=== PATIENT | female | born 1945 | race Caucasian/White ===

== ENCOUNTER → 2016-05-11 | Outpatient (CLI) | payer OTHER ==
[~2016-05-11] MED LIST: BIOT1TAB5 PO; CALC500C3; CHOL100010 PO; CLON0.5T3 PO; COEN100C15 PO; FLUO20CA20 PO; LEVOTHYROXIN; LISI40TA PO; SIMV20TA2 PO
[2016-05-11 17:17] LABS: BLOOD UREA NITROGEN 17 mg/dl (7-18); BUN/CREATININE RATIO 13.8 (10-20); CALCIUM 9.3 mg/dl (8.5-10.1); CARBON DIOXIDE 28 mmol/L (21-32); CHLORIDE 106 mmol/L (98-107); GLUCOSE 108 mg/dl (70-99); POTASSIUM 3.8 mmol/L (3.5-5.1); SODIUM 142 mmol/L (136-145)
[2016-05-12 06:25] LABS: ESTIMATED AVERAGE GLUCOSE 126 mg/dl; HA1C FLAG Normal (Normal)
--- NOTE | 2016-05-15 09:31 | CODING QUERY MEDICAL NECESSITY ---
SUPPORTING DIAGNOSIS NEEDED A supporting diagnosis is required for the test/procedure performed on this patient in order for us to be reimbursed by the patient's insurance. Please provide a supporting diagnosis for the following test/procedure listed below next to the test name along with your signature. *If there is no additional diagnosis for this patient that would support the following test/procedure please document that below next to the test/procedure. Test(s)/Procedure(s) that require a supporting diagnosis: * GLYCATED HEMOGLOBIN DIAGNOSIS: * DOS: 05/11/16 Provider Signature: Date: Thank you Kenyetta Perez Health Information Management Once completed, please kindly fax back to [phone] For questions please call [phone]
== END | disposition home or self-care (01) ==
LOC: C.LABBC 13:57
PROVIDERS: ATTEND Internal Medicine Geriatric Medicine
DX: I10 Essential (primary) hypertension (principal); E03.9 Hypothyroidism, unspecified; E78.5 Hyperlipidemia, unspecified; F32.9 Major depressive disorder, single episode, unspecified; M85.80 Other specified disorders of bone density and structure, unspecified site; N18.9 Chronic kidney disease, unspecified; D12.6 Benign neoplasm of colon, unspecified

== ENCOUNTER 2016-07-12 20:23 | Emergency (ER) | payer OTHER ==
[~2016-07-12] VITALS: Ht 157.5 cm; Wt 91.8 kg
[2016-07-12 20:29] VITALS: TEMP 36.5; Ht 157.5 cm; Wt 91.8 kg
[2016-07-12] MEDS ORDERED: CEFAZOLIN SOD 1000MG/55 ML D5W IV STA (20:29)
[2016-07-12] MEDS ORDERED: ONDANSETRON INJ 2 MG/ML 2 ML VIAL IV STA ×2 (20:29→21:03)
[2016-07-12] MEDS ORDERED: DIPHTHERIA/TETANUS/PERTUSSIS 0.5 ML SYR/VIAL IM. ONE (20:30)
--- NOTE | 2016-07-12 20:50 | DIAGNOSTIC IMAGING REPORT ---
CHEST ONE VIEW PORTABLE CLINICAL HISTORY: Fall. COMPARISON STUDY: Chest CT June 13, 2012 and chest radiograph November 27, 2011. FINDINGS: Lung volumes are diminished. There is mild cardiomegaly. There is apparent pulmonary vascular congestion. No pneumothorax or pleural effusion is present. There is no lobar consolidation. IMPRESSION: 1. Mild cardiomegaly with suspected pulmonary vascular congestion. 2. No pneumothorax. Electronically signed by: Cesario Rizvi M.D. 07/12/2016 8:49 PM Dictated Date/Time: 07/12/2016 8:46 PM
[2016-07-12 20:51] VITALS: BP 155/100; PULSE 73; O2SAT 100
--- NOTE | 2016-07-12 20:53 | EMERGENCY ROOM VISIT NOTE ---
History Report prepared by Urbano: Yanely Cisneros Under the Supervision of: Dr. Richard Ramsey M.D. 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 The patient reports that she fell down about 25 feet over a van embankment. She notes neck pain and bilateral shoulder pain that is worsened with movement. She has numerous lacerations to her face and reports facial pain. The patient rates her pain as a 6/10 in severity. Her family drove her to the ED. The patient started vomiting en route to the ED. She states that she is developing a headache. She is not sure if her tetanus is up to date. The patient denies shortness of breath , hip pain, and chest pain. She denies taking any blood thinners. Source of History: patient, family Onset: PACS ADMINISTRATOR Position: other (global) Symptom Intensity: 6/10 Timing: other (episode) Modifying Factors (Worsening): movement Associated Symptoms: + headache, + nausea, + neck pain, + vomiting, No SOB, No chest pain Note: Pt has bilateral shoulder pain. She has numerous lacerations to her face and reports facial pain. Review of Systems See HPI for pertinent positives & negatives. A total of 10 systems reviewed and were otherwise negative. Past Medical & Surgical Medical Problems: (1) Hyperlipidemia, unspecified (2) Lumbago Surgical Problems: (1) History of bilateral knee replacement Family History Non-pertinent due to advanced age. Social History Smoking Status: Never Smoker Housing Status: lives with family Occupation Status: retired Current/Historical Medications Scheduled Biotin (Biotin), 1 TAB PO DAILY Cholecalciferol (Vitamin D), 1,000 INTER.UNIT PO DAILY Clonazepam (Klonopin), 0.5 MG PO HS PRN Coenzyme Q10 (Ubidecarenone) (Co Q10), 1 CAP PO DAILY Fluoxetine Hcl (Pmdd) (Fluoxetine), 1 CAP PO DAILY Lisinopril (Zestril), 40 MG PO DAILY Simvastatin (Zocor), 20 MG PO QPM [Levothyroxin], 75 MCG DAILY [Tums], DAILY Allergies Coded Allergies: NSAIDs (Verified Adverse Reaction, Severe, NO NSAIDS PER DR BEE ( [id number] ADM), 07/12/16) STATES SHE TAKES NSAIDS NEEDED Erythromycin (Verified Adverse Reaction, Mild, GI SENSITIVITY, 07/12/16) Hydrocodone (Verified Adverse Reaction, Mild, HEADACHE, NAUSEA, 07/12/16) 10/19/14 DENIES STATES HAS USED [facility] W/O PROB Physical Exam Vital Signs Date Time Temp Pulse Resp B/P Pulse Ox O2 Delivery O2 Flow Rate FiO2 07/12/16 20:51 73 16 155/100 100 Room Air 07/12/16 20:47 72 18 156/82 100 Room Air 07/12/16 20:35 74 07/12/16 20:29 36.5 75 18 159/83 100 Room Air Physical Exam GENERAL: Patient is well appearing and in moderate distress. HEAD: She has extensive face and head injury with nasal laceration and avulsion of most of nose. Large contusion and bruising around the left eye and laceration to the left eyebrow. Contusion and abrasion to the posterior scalp, non-bleeding EYES: Unable to see left pupil due to severe periorbital swelling/bruising. Right pupil reactive. No scleral icterus. Normal EOM. ENT: moist mucous membranes, nose is almost completely avulsed off. NECK: No stridor, trachea is midline. She is in a cervical collar. CHEST: TTP over left upper chest at site of bruise. Non-tender, equal chest rise with breath. Clavicles stable/non-tender. LUNGS: Clear to auscultation bilaterally, no wheeze, no rhonchi, breath sounds equal. No dyspnea. HEART: Regular rate and rhythm. No murmurs/gallops/rhonchi appreciated. ABDOMEN: Soft, nontender, bowel sounds positive, no peritonitis. No masses appreciated. BACK: Nontender with palpation, no step-offs. PELVIS: Stable. Non-tender EXTREMITIES: No cyanosis or edema, full range of motion of all the joints without pain or difficulty, bilateral arm and leg bruising and contusions. Distal pulses intact. SKIN: No rash, no jaundice, no diaphoresis. NEUROLOGIC: Oriented x 3, no acute motor or sensory deficits, no focal weakness. GCS 15. Medical Decision & Procedures ER Provider Diagnostic Interpretation: Radiology results and stated below per my review and radiologist interpretation: CHEST ONE VIEW PORTABLE CLINICAL HISTORY: Fall. COMPARISON STUDY: Chest CT June 13, 2012 and chest radiograph November 27, 2011. FINDINGS: Lung volumes are diminished. There is mild cardiomegaly. There is apparent pulmonary vascular congestion. No pneumothorax or pleural effusion is present. There is no lobar consolidation. IMPRESSION: 1. Mild cardiomegaly with suspected pulmonary vascular congestion. 2. No pneumothorax. Electronically signed by: Cesario Rizvi M.D. 07/12/2016 8:49 PM Dictated Date/Time: 07/12/2016 8:46 PM PELVIS 1 OR 2 VIEW ROUTINE CLINICAL HISTORY: Trauma. COMPARISON STUDY: PET/CT November 07, 2011. FINDINGS: The sacroiliac joints and symphysis pubis are intact. No acute fracture is identified within the pelvis or the hips. Apparent foreshortening of the right femoral neck is likely technical. IMPRESSION: Apparent foreshortening of the right femoral neck. This is likely positional/technical. However, if persistent right hip pain, dedicated right hip radiographs are recommended. Electronically signed by: Cesario Rizvi M.D. 07/12/2016 8:53 PM Dictated Date/Time: 07/12/2016 8:51 PM Laboratory Results 07/12/16 20:30 Red Blood Count 4.73, Mean Corpuscular Volume 83.5, Mean Corpuscular Hemoglobin 29.8, Mean Corpuscular Hemoglobin Concent 35.7, Mean Platelet Volume 10.2 07/12/16 20:30 Test 07/12/16 20:30 07/12/16 20:35 White Blood Count 15.72 K/uL (4.8-10.8) Red Blood Count 4.73 M/uL (4.2-5.4) Hemoglobin 14.1 g/dL (12.0-16.0) Hematocrit 39.5 % (37-47) Mean Corpuscular Volume 83.5 fL (80-100) Mean Corpuscular Hemoglobin 29.8 pg (25-34) Mean Corpuscular Hemoglobin Concent 35.7 g/dl (32-36) Platelet Count 267 K/uL (130-400) Mean Platelet Volume 10.2 fL (7.4-10.4) RDW Standard Deviation 41.8 fL (36.4-46.3) RDW Coefficient of Variation 13.5 % (11.5-14.5) Nucleated RBC Absolute Count (auto) 0.02 K/uL (0-0) Neutrophils % (Manual) 53.0 % Lymphocytes % (Manual) 17.4 % Variant Lymphocytes % (manual) 14.8 % Monocytes % (Manual) 9.6 % Eosinophils % (Manual) 2.6 % Myelocytes % 2.6 % Nucleated Red Blood Cells % 0.1 % Neutrophils # (Manual) 8.33 K/uL (1.4-6.5) Total Absolute Neutrophils 8.33 K/uL (1.4-6.5) Lymphocytes # (Manual) 2.74 K/uL (1.2-3.4) Absolute Variant Lymphocytes 2.33 K/uL Total Absolute Lymphocytes 5.06 K/uL (1.2-3.4) Monocytes # (Manual) 1.51 K/uL (0.11-0.59) Eosinophils # (Manual) 0.41 K/uL (0-0.5) Myelocytes # 0.41 K/uL (0-0) Smudge Cells PRESENT Est Creatinine Clear Calc Drug Dose 37.7 ml/min Estimated GFR () 43.1 Estimated GFR (Non- 37.2 BUN/Creatinine Ratio 14.3 (10-20) Calcium Level 9.2 mg/dl (8.5-10.1) Chemistry Specimen Hemolysis Bedside Hemoglobin 13.9 g/dl (12.0-16.0) Bedside Hematocrit 41 % (37-47) Bedside Sodium 142 mEq/L (135-144) Bedside Potassium 2.9 mEq/L (3.3-5.0) Bedside Chloride 104 mEq/L (101-112) Bedside Total CO2 20 mEq/l (24-31) Anion Gap 23.0 mmol/L (16-25) Bedside Blood Urea Nitrogen 21 mg/dl (7-18) Bedside Creatinine 1.2 mg/dl (0.6-1.3) Bedside Glucose (other) 139 mg/dl (70-99) Bedside Ionized Calcium (Alex) 1.10 mmol/l (1.12-1.32) Laboratory results as reviewed by me. Medications Administered Medications (Trade) Dose Ordered Sig/Sherman Route Start Time Stop Time Status Last Admin Dose Admin Ondansetron HCl (Zofran Inj) 4 mg NOW STAT IV 07/12/16 20:29 07/12/16 20:31 DC 07/12/16 20:39 4 MG Diphtheria/ Pertussis/Tetanus Vacc (Adacel Inj) 0.5 ml ONCE ONCE IM. 07/12/16 20:30 07/12/16 20:31 DC 07/12/16 20:39 0.5 ML Cefazolin Sodium (Ancef 1000mg/55 ml D5W) 2,000 mg NOW STAT IV 07/12/16 20:29 07/12/16 20:32 DC 07/12/16 20:40 2,000 MG Fentanyl Citrate (Fentanyl Inj) 100 mcg STK-MED ONCE .ROUTE 07/12/16 20:58 07/12/16 20:59 DC 07/12/16 20:58 50 MCG Ondansetron HCl (Zofran Inj) 4 mg NOW STAT IV 07/12/16 21:03 07/12/16 21:04 DC 07/12/16 21:07 4 MG Fentanyl Citrate (Fentanyl Inj) 50 mcg NOW STAT IV 07/12/16 21:03 07/12/16 21:04 DC 07/12/16 21:08 50 MCG ED Course 2021: The patient was evaluated in room A1. A complete history and physical exam was performed. Bedside FAST exam negative. 2026: I updated the patient's family. 2028: Cefazolin Sodium 2000 mg IV, Zofran 4 mg IV 2030: Adacel 0.5 ml IM 2031: At this time I spoke with Dr. Wilye, the emergency room physician at [facility] in [place]. We discussed the patient's case and he accepted the patient for transfer. He will call a helicopter. 2034: I reassessed the patient at this time. I discussed the results and treatment plan with the patient and her family. I answered all pertaining questions that they had. They expressed understanding and verbalized agreement. The patient will be transferred via helicopter to [facility] in [place] for further management. 2053: I reevaluated the patient. The life flight crew has arrived in the department and is preparing the patient for transfer. Medical Decision Differential: Intracranial Injury, Cervical Injury, Intrathoracic/Abdominal Injury, Neurologic Injuries, Fractures/Dislocations, Lacerations, Tetanus Status , amongst other pathologies entertained. 71 yr old female arrives following 25 foot fall down embankment. Significant evidence of head injury with multiple contusions over arms/legs. Denies blood thinner use. Vomiting on arrival though improved with zofran. Complaining of headache, facial pain and neck pain. Cervical collar and midling spine maintained. Multiple complex lacerations of face/nose/head. CXR and Pelv xrays clear. FAST negative. Vitals OK. Tetanus updated. Given complex lacs that are dirty went ahead with Ancef 2g IV. She has significant DALILA with severe facial/head injury and complaining of neck pain. She will need evaluation at trauma center. Given acuity will need to be air lifted to nearest trauma center. Patient was given some fentanyl due to pain. Did have some return of vomiting on [employer] arrival thus given further Zofran and feeling better. Discussed concerns of airway issues, but with her clearly difficult airway would like to avoid intubation as long as she is neurologically awake and protecting airway. Currently she is stable, has good vitals, is not hemorrhaging externally, CXR clear, abdo FAST negative. She requires emergent trauma surgery evaluation. Family and patient agree. Consults Time Called: 2027 Consulting Physician: Dr. Wiley Returned Call: 2031 At this time I spoke with Dr. Wiley, the emergency room physician at [facility] in [place]. We discussed the patient's case and he accepted the patient for transfer. He will call a helicopter. Impression Primary Impression: Facial trauma Additional Impressions: Head injury Fall down embankment Multiple contusions Laceration of nose, complex Critical Care I have personally spent greater than 35 minutes of critical care time in the direct management of this patient. This was a life/limb threatening event. This includes time spent evaluating patient, direct bedside care, chart review, placing orders, interpretation of diagnostic studies, discussion with consultants, patient, and family members, as well as other required patient management activities. This 35 minutes is in excess of all separately billable procedures. Scribe Attestation The scribe's documentation has been prepared under my direction and personally reviewed by me in its entirety. I confirm that the note above accurately reflects all work, treatment, procedures, and medical decision making performed by me. Departure Information Dispostion Transfer Acute Care Facility Referrals Elan Castro M.D. (PCP) Patient Instructions My [facility] Problem Qualifiers Primary Impression: Facial trauma Encounter type: initial encounter Qualified Codes: S09.93XA - Unspecified injury of face, initial encounter Additional Impressions: Head injury Encounter type: initial encounter Qualified Codes: S09.90XA - Unspecified injury of head, initial encounter Fall down embankment Encounter type: initial encounter Qualified Codes: W17.81XA - Fall down embankment (hill), initial encounter Laceration of nose, complex Encounter type: initial encounter Qualified Codes: S01.21XA - Laceration without foreign body of nose, initial encounter
[2016-07-12 20:57] LABS: ISTAT CREATININE 1.2 mg/dl (0.6-1.3); ISTAT HEMOGLOBIN 13.9 g/dl (12.0-16.0); ISTAT IONIZED CALCIUM 1.1 mmol/l (1.12-1.32)
[2016-07-12] MEDS ORDERED: FENTANYL CITRATE INJ 50 MCG/1 ML 2 ML VIAL ONE (20:58)
[2016-07-12] MEDS ORDERED: FENTANYL CITRATE INJ 50 MCG/1 ML 2 ML VIAL IV STA (21:03)
[2016-07-12 21:12] LABS: HEMATOCRIT 39.5 % (37-47); MEAN CELL VOLUME 83.5 fL (80-100); MEAN CORPUSCULAR HEMOGLOBIN 29.8 pg (25-34); MEAN CORPUSCULAR HGB CONC 35.7 g/dl (32-36); MEAN PLATELET VOLUME 10.2 fL (7.4-10.4); PLATELET COUNT 267 K/uL (130-400); RED BLOOD COUNT 4.73 M/uL (4.2-5.4); WHITE BLOOD COUNT 15.72 K/uL (4.8-10.8)
[2016-07-12 21:36] LABS: BUN/CREATININE RATIO 14.3 (10-20); CREATININE 1.4 mg/dl (0.60-1.20)
[2016-07-12 22:03] LABS: EOSINOPHIL % 2.6 %; LYMPH ABS # 2.74 K/uL (1.2-3.4); LYMPHOCYTE % 17.4 %; MYELOCYTE % 2.6 %; SMUDGE CELLS PRESENT; VARIANT LYM ABS # 2.33 K/uL; VARIANT LYMPHOCYTE % 14.8 %
[2016-07-12 22:05] LABS: COMPLETE YES
[2016-07-12 22:22] LABS: CALCIUM 9.2 mg/dl (8.5-10.1)
== END 2016-07-12 21:08 | disposition short-term general hospital (02) ==
LOC: C.EDB 20:24 → C.ED 21:08
DX: S09.93XA Unspecified injury of face, initial encounter (principal); S09.90XA Unspecified injury of head, initial encounter; W17.81XA Fall down embankment (hill), initial encounter; S01.21XA Laceration without foreign body of nose, initial encounter; E78.5 Hyperlipidemia, unspecified; M54.5 Low back pain

== ENCOUNTER → 2016-09-24 | Outpatient (CLI) | payer OTHER ==
--- NOTE | 2016-09-24 15:57 | DIAGNOSTIC IMAGING REPORT ---
VENOUS DOPPLER RIGHT ARM UPPER EXTREMITY VENOUS DOPPLER HISTORY: I80.9 Right COMPARISON STUDY: None. FINDINGS: The internal jugular vein is patent. There is normal flow within the subclavian vein. There is normal flow and compressibility within the left axillary, basilic, brachial, radial, ulnar, and visualized cephalic veins. There are findings of focal superficial thrombophlebitis within the distal forearm at the site of clinically palpable nodularity IMPRESSION: 1. No evidence for deep venous thrombosis. 2. Superficial thrombophlebitis focally at the site of clinically palpable nodularity Electronically signed by: Bob Kaminski M.D. 09/24/2016 3:56 PM Dictated Date/Time: 09/24/2016 3:55 PM
== END | disposition home or self-care (01) ==
PROVIDERS: ATTEND Physician Assistant Medical
DX: I80.8 Phlebitis and thrombophlebitis of other sites (principal)

== ENCOUNTER → 2016-12-26 | Outpatient (CLI) | payer OTHER ==
[2016-12-26 17:04] LABS: ALT/SGPT 18 U/L (12-78); AST/SGOT 21 U/L (15-37); BLOOD UREA NITROGEN 18 mg/dl (7-18); BUN/CREATININE RATIO 15.2 (10-20); CALCIUM 9.3 mg/dl (8.5-10.1); CARBON DIOXIDE 25 mmol/L (21-32); CHLORIDE 109 mmol/L (98-107); CHOLESTEROL 183 mg/dl (0-200); GLUCOSE 82 mg/dl (70-99); SODIUM 142 mmol/L (136-145)
[2016-12-26 17:18] LABS: ALB/GLOB RATIO 1.1 (0.9-2); ALKALINE PHOSPHATASE 74 U/L (45-117); CHOLESTEROL/HDL RATIO 3.3; HDL CHOLESTEROL 55 mg/dl; LDL CHOLESTEROL CALCULATED 110 mg/dl; TRIGLYCERIDES 91 mg/dl (0-150); VERY LOW DENSITY LIPOPROT CALC 18 mg/dl
[2016-12-27 06:52] LABS: ESTIMATED AVERAGE GLUCOSE 123 mg/dl; HA1C FLAG Normal (Normal)
== END | disposition home or self-care (01) ==
LOC: C.LABBC 13:48
PROVIDERS: ATTEND Internal Medicine Geriatric Medicine
DX: E03.9 Hypothyroidism, unspecified (principal); R73.9 Hyperglycemia, unspecified; I10 Essential (primary) hypertension; E78.5 Hyperlipidemia, unspecified; N18.9 Chronic kidney disease, unspecified; E55.9 Vitamin D deficiency, unspecified

== ENCOUNTER → 2017-03-12 | Outpatient (CLI) | payer OTHER ==
--- NOTE | 2017-03-13 15:59 | MAMMOGRAPHY REPORT ---
BILATERAL DIGITAL SCREENING MAMMOGRAM TOMOSYNTHESIS WITH CAD: 03/12/2017 CLINICAL HISTORY: Routine screening. Patient has no complaints. TECHNIQUE: Breast tomosynthesis in addition to standard 2D mammography was performed. Current study was also evaluated with a Computer Aided Detection (CAD) system. COMPARISON: Comparison is made to exams dated: 03/07/2016 mammogram, 02/15/2015 mammogram, 02/09/2014 mammogram, 02/03/2013 mammogram, 12/26/2011 mammogram, and 12/16/2009 mammogram - [facility]. BREAST COMPOSITION: There are scattered areas of fibroglandular density in both breasts. FINDINGS: There are moderate vascular calcifications in the breasts. Stable nodularity in the medial right breast. No suspicious spiculated or irregular mass, architectural distortion or cluster of de santiago spicious microcalcifications is seen. IMPRESSION: ACR BI-RADS CATEGORY 1: NEGATIVE There is no mammographic evidence of malignancy. A 1 year screening mammogram is recommended. The pa tient will receive written notification of the results. Approximately 10% of breast cancers are not detected with mammography. A negative mammographic report should not delay biopsy if a clinically suggestive mass is present. Trina Klein M.D. ay/:03/12/2017 15:35:35 Clinical Biostatistics Director: Jo MARROQUIN(Timo)(M), [facility] letter sent: Normal 1/2 BI-RADS Code: ACR BI-RADS Category 1: Negative
== END | disposition home or self-care (01) ==
LOC: C.MAMM 09:45
PROVIDERS: ATTEND Internal Medicine Geriatric Medicine
DX: Z12.31 Encounter for screening mammogram for malignant neoplasm of breast (principal)

== ENCOUNTER → 2017-07-03 | Day surgery (SDC) | payer OTHER ==
[2017-06-17 14:49] VITALS: BMI 37.0
[~2017-07-03] VITALS: Ht 154.9 cm; Wt 88.6 kg
[~2017-07-03] MED LIST changes: -BIOT1TAB5 PO; +BIOTCAP2 PO; -CALC500C3; -CHOL100010 PO; +CHOL200010 PO; +CZR50 PO; -FLUO20CA20 PO; +FLUO40CA8 PO; +LEVO75TA5 PO; -LEVOTHYROXIN; +LIDOCAINE HCL 2% 2 ML VIAL (20MG/ML) ONE; -LISI40TA PO; +MAGN250T3 PO; +MIDAZOLAM HCL 1 MG/ML 2ML VIAL ONE; +ONDANSETRON INJ 2 MG/ML 2 ML VIAL ONE; +PROPOFOL IV EMULSION 10 MG/ML 20 ML VIAL IV ONE; +SODIUM CHLORIDE 0.9% 500ML 500 ML IV ONE
[2017-07-03 13:00] VITALS: Ht 154.9 cm; Wt 88.6 kg
--- NOTE | 2017-07-03 13:00 | Endo History and Physical ---
History & Physical Date of Service: Jul 03, 2017. Chief Complaint: History of colon polyps Referring Physician: Elan Castro History of Present Illness 72 yo CF who presents for colonoscopy secondary to history of colon polyps. Past Medical History Arthritis, High Cholesterol, Hypertension, Thyroid Disease, Other Past Surgical History Hx Cardiac Surgery: No Hx Internal Defibrillator: No Hx Pacemaker: No Hx Abdominal Surgery: Yes (TUBAL LIGATION, OVARIAN WEDGE RESECTION, UTERINE TACK) Hx of Implantable Prosthesis: No Hx Post-Op Nausea and Vomiting: No Hx Cancer Surgery: Yes (COLON RESECTION) Hx Thoracic Surgery: Yes (MEDIASTINAL LYMPH NODE BIOPSY (BENIGN)) Hx Orthopedic: Yes (LT/RT TKA, LT/RT CTR) Hx Urinary Tract Surgery: No Family History Colon CA, Polyp Social History Smoking Status: Never Smoker Hx Substance Use: No Hx Alcohol Use: No Allergies Coded Allergies: NSAIDs (Verified Adverse Reaction, Severe, NO NSAIDS PER DR BEE ( [id number] ADM), 07/03/17) STATES SHE TAKES NSAIDS NEEDED Erythromycin (Verified Adverse Reaction, Mild, GI SENSITIVITY, 07/03/17) Current Medications Reported Home Medications Medications Dose Route/Sig Max Daily Dose Days Date Category Vitamin D (Cholecalciferol) 2,000 Unit Cap 1 Cap PO DAILY 06/17/17 Reported Losartan Potassium 50 Mg Tab 1 Tab PO QAM 06/17/17 Reported Levothyroxine Sodium 75 Mcg Tab 1 Tab PO QAM 06/17/17 Reported Magnesium 250 mg (Magnesium) 1 Tab Tab 1 Tab PO DAILY 06/17/17 Reported Prozac (Fluoxetine HCl) 40 Mg Cap 40 Mg PO QAM 06/17/17 Reported Biotin 5000 (Biotin) 5 Mg Cap 1 Cap PO DAILY 06/17/17 Reported Co Q10 (Coenzyme Q10 (Ubidecarenone)) 100 Mg Cap 1 Cap PO DAILY 10/30/11 Reported Klonopin (Clonazepam) 0.5 Mg Tab 0.5 Mg PO HS PRN 10/30/11 Reported Zocor (Simvastatin) 20 Mg Tab 20 Mg PO QPM 10/30/11 Reported Vital Signs Weight (Kilograms): 88.64 Height (Feet): 5 Height (Inches): 1 Physical Exam General Appearance: WD/WN, no apparent distress Respiratory/Chest: Auscultation: breath sounds normal Cardiovascular: Heart Auscultation: RRR Abdomen: Bowel Sounds: normal Inspection & Palpation: soft, non-distended, no tenderness, guarding & rebound Assessment and Plan Assessment: 72 yo CF who presents for colonoscopy secondary to history of colon polyps. Plan: Proceed with colonoscopy.
--- NOTE | 2017-07-03 13:49 | Discharge Instructions ---
Endoscopy Patient Instructions Date / Procedure(s) Performed Jul 03, 2017. Colonoscopy Allergy Information Coded Allergies: NSAIDs (Verified Adverse Reaction, Severe, NO NSAIDS PER DR BEE ( [id number] ADM), 07/03/17) STATES SHE TAKES NSAIDS NEEDED Erythromycin (Verified Adverse Reaction, Mild, GI SENSITIVITY, 07/03/17) Discharge Date / Findings Jul 03, 2017. Colon polyp Internal hemorrhoids Medication Instructions OK to resume all medications today as prescribed Reported Home Medications Medications Dose Route/Sig Max Daily Dose Days Date Category Vitamin D (Cholecalciferol) 2,000 Unit Cap 1 Cap PO DAILY 06/17/17 Reported Losartan Potassium 50 Mg Tab 1 Tab PO QAM 06/17/17 Reported Levothyroxine Sodium 75 Mcg Tab 1 Tab PO QAM 06/17/17 Reported Magnesium 250 mg (Magnesium) 1 Tab Tab 1 Tab PO DAILY 06/17/17 Reported Prozac (Fluoxetine HCl) 40 Mg Cap 40 Mg PO QAM 06/17/17 Reported Biotin 5000 (Biotin) 5 Mg Cap 1 Cap PO DAILY 06/17/17 Reported Co Q10 (Coenzyme Q10 (Ubidecarenone)) 100 Mg Cap 1 Cap PO DAILY 10/30/11 Reported Klonopin (Clonazepam) 0.5 Mg Tab 0.5 Mg PO HS PRN 10/30/11 Reported Zocor (Simvastatin) 20 Mg Tab 20 Mg PO QPM 10/30/11 Reported Provider Instructions Activity Restrictions - No exercising or heavy lifting for 24 hours. - Do not drink alcohol the day of the procedure. - Do not drive a car or operate machinery until the day after the procedure. - Do not make any important decisions or sign important papers in 24 hours after the procedure. Following Day: - Return to full activity which may include returning to work/school. Diet Start your diet with liquids and light foods (jello, soup, juice, toast). Then eat your usual diet if not nauseated. Treatment For Common After Affects For mild abdominal pain, bloating, or excessive gas: - Rest - Eat lightly - Lie on right side Follow-Up Information Follow-up with DR. WM RIVERA as scheduled Anesthesia Information What You Should Know You have had a procedure that required some medicine to reduce anxiety and discomfort. This treatment is called moderate sedation. After receiving the treatment, you may be sleepy, but you will be able to breathe on your own. The effects of the treatment may last for several hours. Follow these instructions along with Activity/Diet recommendations noted above: * Do NOT do anything where dizziness or clumsiness would be dangerous. * Rest quietly at home today, then you can be up and about tomorrow. * Have a responsible person stay with you the rest of today. * You may have had an I.V. today. If so, you may take the dressing off later today. Recommendations Call your doctor if: * Trouble breathing * Continuous vomiting for more than 24 hours * Temperature above 101 degrees * Severe abdominal pain or bloating * Pain not relieved by pain medicine ordered * There is increased drainage or redness from any incision * A large amount of rectal bleeding greater than 2-3 tablespoons. (If you had a polyp/s removed or have hemorrhoids, a small amount of blood - from the rectum is to be expected.) * You have any unanswered questions or concerns. IN THE EVENT OF A SERIOUS EMERGENCY, GO TO THE NEAREST EMERGENCY ROOM Your discharge instructions were prepared by provider Stepan Taveras. Patient Instructions Signature Page Britt Neil Patient (or Guardian) Signature/Date: I have read and understand the instructions given to me by my caregivers. Caregiver/RN/Doctor Signature/Date: The above-named patient and/or guardian has received patient instructions on this date. + Original Patient Signature Page (only) stays with chart. Please make copy for patient.
--- NOTE | 2017-07-03 14:00 | Anesthesiology Progress Note ---
Anesthesia Post Op Note Date & Time Jul 03, 2017 at 14:00 Vital Signs Pain Intensity: 0 Vital Signs Past 12 Hours Date Time Temp Pulse Resp B/P (MAP) Pulse Ox O2 Delivery O2 Flow Rate FiO2 07/03/17 13:50 67 20 115/59 (77) 94 Room Air 07/03/17 13:16 36.5 73 20 145/91 (109) 96 Room Air Notes Mental Status: alert / awake / arousable, participated in evaluation Pt Amnestic to Procedure: Yes Nausea / Vomiting: adequately controlled Pain: adequately controlled Airway Patency, RR, SpO2: stable & adequate BP & HR: stable & adequate Hydration State: stable & adequate Anesthetic Complications: no major complications apparent
--- NOTE | 2017-07-03 14:00 | GI REPORT ---
Procedure Date: 07/03/2017 1:16 PM Procedure: Colonoscopy Indications: High risk colon cancer surveillance: Personal history of colonic polyps Medicines: Monitored Anesthesia Care Complications: No immediate complications. Estimated Blood Loss: Estimated blood loss: none. Procedure: Pre-Anesthesia Assessment: - Prior to the procedure, a History and Physical was performed, and patient medications and allergies were reviewed. The patient's tolerance of previous anesthesia was also reviewed. The risks and benefits of the procedure and the sedation options and risks were discussed with the patient. All questions were answered, and informed consent was obtained. Prior Anticoagulants: The patient has taken no previous anticoagulant or antiplatelet agents. ASA Grade Assessment: II - A patient with mild systemic disease. After reviewing the risks and benefits, the patient was deemed in satisfactory condition to undergo the procedure. After I obtained informed consent, the scope was passed under direct vision. Throughout the procedure, the patient's blood pressure, pulse, and oxygen saturations were monitored continuously. The scope was introduced through the anus and advanced to the terminal ileum. The colonoscopy was performed without difficulty. The patient tolerated the procedure well. The quality of the bowel preparation was good. The terminal ileum, ileocecal valve, appendiceal orifice, and rectum were photographed. Findings: The perianal and digital rectal examinations were normal. A 5 mm polyp was found in the sigmoid colon. The polyp was sessile. The polyp was removed with a hot snare. Resection and retrieval were complete. Non-bleeding internal hemorrhoids were found during retroflexion. The hemorrhoids were small. Impression: - One 5 mm polyp in the sigmoid colon, removed with a hot snare. Resected and retrieved. - Non-bleeding internal hemorrhoids. Recommendation: - Resume previous diet. - Continue present medications. - Repeat colonoscopy for surveillance based on pathology results. - Return to primary care physician as previously scheduled. Stepan Taveras DO 07/03/2017 1:59:17 PM This report has been signed electronically. Note Initiated On: 07/03/2017 1:16 PM I attest to the content of the Intraoperative Record and orders documented therein, exceptions below
[2017-07-03 14:21] VITALS: BP 119/67; PULSE 59; O2SAT 92
== END | disposition home or self-care (01) ==
LOC: C.GI 12:37
PROVIDERS: ATTEND Internal Medicine
DX: Z12.11 Encounter for screening for malignant neoplasm of colon (principal); D12.5 Benign neoplasm of sigmoid colon; Z86.010 Personal history of colon polyps; Z85.038 Personal history of other malignant neoplasm of large intestine; Z80.0 Family history of malignant neoplasm of digestive organs; I10 Essential (primary) hypertension; K21.9 Gastro-esophageal reflux disease without esophagitis; M19.90 Unspecified osteoarthritis, unspecified site; K64.8 Other hemorrhoids; E78.00 Pure hypercholesterolemia, unspecified; E07.9 Disorder of thyroid, unspecified; Z90.49 Acquired absence of other specified parts of digestive tract; Z96.651 Presence of right artificial knee joint; Z96.652 Presence of left artificial knee joint; Z88.6 Allergy status to analgesic agent; Z88.1 Allergy status to other antibiotic agents

== ENCOUNTER 2023-03-22 12:20 | Observation (INO) ==
--- NOTE | 2023-03-22 14:44 | XRay Report ---
XR chest 1V portable CLINICAL HISTORY: Chest pain, nonspecific. COMPARISON STUDY: Chest CT June 03, 2012. Chest radiograph January 23, 2022. FINDINGS: Lung volumes are normal. Lungs are clear. There is no pneumothorax or pleural effusion. Car diac size is stable. Mediastinal contours are normal. There is no evidence for pulmonary edema. IMPRESSION: No acute cardiopulmonary findings. ACT 112: Negative or not required by law. Electronically signed by: Cesario Rizvi M.D. 03/22/2023 2:43 PM
[2023-03-22 14:46] LABS: Basophils # (auto) 0.07 K/uL (0.00-0.20); Basophils % (auto) 0.6 %; Eosinophils # (auto) 0.24 K/uL (0.00-0.50); Eosinophils % (auto) 2.2 %; Hemoglobin 15.2 g/dl (12.0-16.0); Immature Granulocytes # (auto) 0.04 K/uL (0.01-0.20); Immature Granulocytes % (auto) 0.4 %; Lymphocytes # (auto) 2.17 K/uL (1.20-3.40); Lymphocytes % (auto) 19.7 %; Mean Corpuscular Hemoglobin 29.9 pg (25.0-34.0); Mean Corpuscular Hgb Conc 33.8 g/dL (32.0-36.0); Mean Corpuscular Volume 88.4 fL (80.0-100.0); Mean Platelet Volume 11.9 fL (9.4-12.4); Monocytes # (auto) 1.41 K/uL (0.11-0.59); Monocytes % (auto) 12.8 %; Neutrophils # (auto) 7.07 K/uL (1.40-6.50); Neutrophils % (auto) 64.3 %; Platelet Count 233 K/uL (130-400); RDW Coefficient of Variation 13.2 % (11.5-14.5); Red Blood Count 5.09 M/uL (4.20-5.40)
[2023-03-22 14:53] LABS: Albumin Globulin Ratio 1.5 (0.9-2); Albumin Level 4.5 gm/dl (3.4-5.0); BUN Creatinine Ratio 12.5 (10-20); Bilirubin,Total 0.9 mg/dl (0.2-1.0); Calcium 9.8 mg/dl (8.6-10.3); Creatinine Clr Calc Pharmacy 34.7 ml/min; Est GFR (African American) 49.8 ml/min; Globulin 3.1 gm/dl (2.5-4.0); Potassium 3.7 mmol/L (3.5-5.1); Total Protein 7.6 gm/dl (6.0-8.3)
--- NOTE | 2023-03-22 15:02 | Emergency Department Note ---
Impression & Plan Back pain, Elevated troponin ED Provider Note NAME: LUKE SHAIKH AGE: 77 SEX: Female INFORMANT: Patient ED PROVIDER(S): Corbin Lloyd MD CHIEF COMPLAINT: Back pain PLAN: Disposition: Admitted Outpatient prescription management: none Referral: None MEDICAL DECISION MAKING: Patient presented complaining of upper back pain. She did have some tenderness of the left trapezius on physical examination. ECG was normal. Her CBC and chemistry panel were unremarkable. Chest x-ray unremarkable. Patient's cardiac troponin was mildly elevated. In light of her elevated troponin and symptoms there was some concern that there may be a cardiac etiology. The patient does not have any current chest pain and denied any chest pain at the onset of the back discomfort. Patient was given aspirin and Nitropaste was applied as she was moderately hypertensive. Repeat troponin and further management in the hospital will be necessary. [facility] Morocho. Patient was evaluated in the ER for further management. Care/management discussed with: club manager Level of care consideration(s): After review of the information above and other included data, I feel the patient requires further management in the hospital for investigation of her symptoms and her elevated troponin. Triage Nursing notes: reviewed and agree them. Vital Signs: reviewed and remarkable for hypertension Additional History obtained from: none Chronic Medical/Social Conditions affecting care: Hypertension Prior/ Outside/ External records reviewed: none Differential Diagnosis: Musculoskeletal, disc herniation, fracture, metastatic disease, cord compression, discitis, ACS, infection, aortic disease, gastrointestinal, as well as other pathologies. Diagnostics, independently interpreted by me: ECG: Twelve-lead ECG rhythm normal sinus rhythm [address] elevation or depression. No TWI. Cardiac Monitoring: Cardiac monitoring ordered by me: The patient was placed on continuous cardiac monitoring and observed. It revealed a normal sinus rhythm at 62 beats per minute without ectopy or evidence of dysrhythmia. Medical decision rules: none Imaging studies: Chest x-ray. Findings: A chest x-ray was performed and revealed no pneumothorax, effusion, infiltrate, pulmonary edema, free air under the diaphragm, or wide mediastinum. Impression: No acute disease. HPI: 77 year old Female arrives for evaluation of upper back pain that radiates to both arms. No trauma. Was lifting a few boxes over the last few days but didn't feel like she injured herself. This started around 0830 and is improved.. The patient also notes the following associated symptoms, headache which started after ed arrival. The patient has taken no medication for relieving factors. Current pain is rated as 2/10. Pt denies LOC, fevers, chills, diaphoresis, visual changes, neck pain, chest pain, breathing difficulties, current nausea, vomiting, abdominal pain, melena, hematochezia, urinary symptoms, numbness, weakness, lymphadenopathy, rash, or other complaints. PAST MEDICAL HISTORY: See Below, HTN PAST SURGICAL HISTORY: See Below, SOCIAL HISTORY: See Below, non-smoker HOME MEDICATIONS: See Below ALLERGIES: See Below VITALS: See Below PHYSICAL EXAMINATION: GENERAL: Awake, alert, well-appearing, in no distress HENT: Normocephalic, atraumatic. Oropharynx unremarkable. EYES: Normal conjunctiva. Sclera non-icteric. NECK: Inspection normal. Non-tender. Supple. No nuchal rigidity. FROM. No masses. RESPIRATORY: Clear to auscultation. No wheezes. No rales. Normal respiratory effort. CARDIAC: Normal rate. Normal rhythm. No murmurs. No rubs. Extremities warm and well perfused. Pulses equal. No JVD. GI: Soft, non-distended. No tenderness to palpation. No rebound or guarding. No masses. RECTAL: Deferred. MUSCULOSKELETAL: Atraumatic. Chest examination reveals no tenderness. The back is symmetrical on inspection without obvious abnormality. There is no CVA tenderness to palpation. No joint edema. LOWER EXTREMITIES: Calves are equal size bilaterally and non-tender. No edema. No discoloration. NEURO: Normal sensorium. No sensory or motor deficits noted. SKIN: No rash or jaundice noted. PROCEDURES: none CRITICAL CARE: none OBSERVATION NOTE: none Past Med/Surg History Medical History Anxiety Chronic back pain Chronic kidney disease, stage 3 (moderate) Depression Dyslipidemia Hearing deficit HTN (hypertension) Hypothyroidism Osteoarthritis Osteopenia Prediabetes Restless leg Tubular adenoma of colon Urinary incontinence Vitamin D deficiency Surgical History History of bilateral knee arthroplasty History of bilateral tubal ligation History of biopsy History of bunionectomy of right great toe History of carpal tunnel release of both wrists History of colonoscopy History of left cataract surgery History of right cataract surgery History of tooth extraction S/P right hemicolectomy (11/2014) Family History Mother CHF (congestive heart failure) Heart disease Myocardial infarction Rheumatic heart disease H/O aortic valve replacement Family history of diabetes mellitus Father Glioblastoma Grandmother (Paternal) Melanoma Aunt Diabetes Aunt Diabetes Other No family history of adverse response to anesthesia Denies family history of Ovarian cancer Prostate cancer Breast cancer Colorectal cancer Social History Smoking Status: Never smoker Tobacco Type: Cigarettes Second Hand Exposure: Yes (hx); Do You Dip or Chew Tobacco: No; Hx Alcohol Use: Yes Alcohol type: wine Alcohol Intake Frequency: Monthly or Less Alcohol Intake Frequency Comment: social Hx Substance Use: No Preferred Language: Paragu[place] Communication Ability: Effective Visual Impairment: Limited Hearing Ability: Use of Hearing Aid 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 Other Information That Helps Us Care for You: No Feels Safe at Home: Yes Safety Concerns: Feels Safe At This Time Childhood Exposure to Second-Hand Smoke: Yes Diet: regular Diet Comment: regular caffeine: Yes (coffee) during the past year weight has: remained stable Dental Care, Regularly: Yes Physical Activity Frequency: 1-2 Times per Week Seatbelt Use: always Sunscreen Use: No (rarely outside) Assistive Devices: Hearing Aid - Bilateral Allergies Allergies Allergy/AdvReac Type Severity Reaction Status Date / Time NSAIDS (Non-Steroidal AdvReac Severe NO NSAIDS Verified 11/20/22 14:04 Anti-Inflamma PER DR BEE erythromycin base AdvReac Intermediate GI Verified 11/20/22 14:04 SENSITIVITY lisinopril AdvReac Intermediate Cough Verified 11/20/22 14:04 Absorbable Suture Allergy Mild drianage Uncoded 11/20/22 14:04 Home Meds Home Medications Medication Instructions Recorded Confirmed cholecalciferol (vitamin D3) 50 2,000 units PO QAM #90 tabs 11/13/18 03/22/23 mcg (2,000 unit) tablet coenzyme Q10 100 mg capsule 100 mg PO QAM 11/13/18 03/22/23 acetaminophen 650 mg 650 mg PO Q12H PRN Pain 06/22/21 03/22/23 tablet,extended release (Tylenol 8 Hour) cyanocobalamin (vitamin B-12) 1,000 mcg PO DAILY 04/30/22 03/22/23 1,000 mcg tablet folic acid 1 tab PO DIRECTED 03/22/23 03/22/23 Previous Rx's Medication Instructions Recorded lorazepam 0.5 mg tablet 0.5 mg PO DAILY PRN anxiety #10 09/18/22 tabs atorvastatin 20 mg tablet 20 mg PO HS #90 tabs 11/07/22 donepezil 5 mg tablet (Aricept) 5 mg PO DAILY #30 tabs 11/07/22 losartan 100 mg tablet 100 mg PO QAM #90 tabs 12/17/22 levothyroxine 75 mcg tablet 75 mcg PO QAM #90 tabs 01/07/23 sertraline 25 mg tablet 25 mg PO DAILY #30 tabs 02/04/23 Results & Data (ED) Vital Signs Vital Signs - 24 hr 03/22/23 12:27 03/22/23 12:39 03/22/23 12:41 Temperature 36.8 C Temperature Source Temporal Artery Scan Pulse Rate 69 62 Pulse Rate [Apical] 66 Pulse Rhythm [Apical] Regular Pulse Strength [Apical] Normal Respiratory Rate 18 20 Respiratory Effort / Characteristics Non-Labored Spontaneous Non-Labored Spontaneous Respiratory Depth Normal Normal Respiratory Pattern Regular Regular Blood Pressure 184/83 H Blood Pressure [Right Arm] 158/81 H Blood Pressure Mean 116 Blood Pressure Mean [Right Arm] 106 Blood Pressure Position Sitting Blood Pressure Position [Right Arm] Semi-fowlers Pulse Oximetry 98 99 Oxygen Delivery Method Room Air Room Air Sepsis Recent Fever Within 48 Hours No Sepsis New/Unexplained Change in Mental Status No Sepsis Action Taken by Nursing No Action Required 03/22/23 14:04 Temperature Temperature Source Pulse Rate Pulse Rate [Apical] Pulse Rhythm [Apical] Pulse Strength [Apical] Respiratory Rate Respiratory Effort / Characteristics Respiratory Depth Respiratory Pattern Blood Pressure Blood Pressure [Right Arm] Blood Pressure Mean Blood Pressure Mean [Right Arm] Blood Pressure Position Blood Pressure Position [Right Arm] Pulse Oximetry 100 Oxygen Delivery Method Room Air Sepsis Recent Fever Within 48 Hours Sepsis New/Unexplained Change in Mental Status Sepsis Action Taken by Nursing Laboratory Data 03/22/23 12:40 03/22/23 12:40 Lab Results 03/22/23 03/22/23 Range/Units 12:40 16:25 WBC 11.00 H (4.8-10.8) K/ul RBC 5.09 (4.20-5.40) M/uL Hgb 15.2 (12.0-16.0) g/dl Hct 45.0 (37.0-47.0) % MCV 88.4 (80.0-100.0) fL MCH 29.9 (25.0-34.0) pg MCHC 33.8 (32.0-36.0) g/dL RDW Std Deviation 43.0 (36.4-46.3) fL RDW Coeff of Roberto 13.2 (11.5-14.5) % Plt Count 233 (130-400) K/uL MPV 11.9 (9.4-12.4) fL Immature Gran % (Auto) 0.4 % Neut % (Auto) 64.3 % Lymph % (Auto) 19.7 % [place] % (Auto) 12.8 % Eos % (Auto) 2.2 % Baso % (Auto) 0.6 % Neut # (Auto) 7.07 H (1.40-6.50) K/uL Lymph # (Auto) 2.17 (1.20-3.40) K/uL [place] # (Auto) 1.41 H (0.11-0.59) K/uL Eos # (Auto) 0.24 (0.00-0.50) K/uL Baso # (Auto) 0.07 (0.00-0.20) K/uL Immature Gran # (Auto) 0.04 (0.01-0.20) K/uL Sodium 140 (136-145) mmol/L Potassium 3.7 (3.5-5.1) mmol/L Chloride 106 (98-107) mmol/L Carbon Dioxide 26 (21-32) mmol/L Anion Gap 8 (3-11) BUN 15 (6-23) mg/dl Creatinine 1.20 (0.6-1.2) mg/dl Est Cr Clr Drug Dosing 34.7 ml/min Est GFR ( Amer) 49.8 ml/min Est GFR (Non-Af Amer) 43.0 ml/min BUN/Creatinine Ratio 12.5 (10-20) Glucose 95 (70-99(Fasting)) mg/dl Calcium 9.8 (8.6-10.3) mg/dl Total Bilirubin 0.9 (0.2-1.0) mg/dl AST 20 (13-39) U/L ALT 13 (7-52) U/L Alkaline Phosphatase 83 (34-104) U/L Troponin I High Sens 95.8 H* 250.6 H* D (0-14) pg/ml C-Reactive Protein < 0.50 (0-0.5) mg/dl Total Protein 7.6 (6.0-8.3) gm/dl Albumin 4.5 (3.4-5.0) gm/dl Globulin 3.1 (2.5-4.0) gm/dl Albumin/Globulin Ratio 1.5 (0.9-2) Lipase 50 (11-82) U/L Lyme Disease IgG Ab Negative (Negative) Lyme Disease IgM Ab Negative (Negative) Administered Medications Atorvastatin Calcium (Atorvastatin 20 Mg Tab) 20 mg PO HS JEWEL Stop: 04/21/23 20:59 Last Admin: 03/22/23 21:49 Dose: 20 mg Documented By: [id number] Heparin Sodium (Porcine) (Heparin Sod 5,000 Unit/0.5 Ml Vial) 5,000 units SQ Q12 JEWEL Stop: 04/21/23 20:59 Last Admin: 03/22/23 21:49 Dose: 5,000 units Documented By: [id number] Discontinued Medications Acetaminophen (Acetaminophen 500 Mg Tab) 1,000 mg PO NOW STA Stop: 03/22/23 15:09 Last Admin: 03/22/23 15:16 Dose: 1,000 mg Documented By: [email or web address] Aspirin (Aspirin Chew 324 Mg) 324 mg PO NOW STA Stop: 03/22/23 15:25 Last Admin: 03/22/23 15:40 Dose: 324 mg Documented By: MARLEENB Nitroglycerin (Nitroglycerin 2% Ointment 30gm Tube) 0.5 inch EXT NOW STA Stop: 03/22/23 15:20 Last Admin: 03/22/23 15:40 Dose: 0.5 inch Documented By: TASH Imaging Data Radiologist's Impression: Chest X-Ray 12/22/23 14:04 XR chest 1V portable CLINICAL HISTORY: Chest pain, nonspecific. COMPARISON STUDY: Chest CT June 03, 2012. Chest radiograph January 23, 2022. FINDINGS: Lung volumes are normal. Lungs are clear. There is no pneumothorax or pleural effusion. Cardiac size is stable. Mediastinal contours are normal. There is no evidence for pulmonary edema. IMPRESSION: No acute cardiopulmonary findings. ACT 112: Negative or not required by law. Electronically signed by: Cesario Rizvi M.D. 03/22/2023 2:43 PM Discharge Plan Visit Data Chief Complaint: Back Injury/Pain Stated Complaint: CHEST PAIN, BACK AND ARM PAIN ED Provider: Corbin Lloyd Discharge Problem: Back pain, Elevated troponin Patient Disposition: Admitted As Inpatient Discharge Instructions Interventions: ED Discharge Assessment Last Done: 03/22/23 18:09
[2023-03-22] MEDS ORDERED: ACETAMINOPHEN 500 MG TAB PO STA (15:08)
[2023-03-22 15:12] LABS: Troponin I High Sensitivity 95.8 pg/ml (0-14)
[2023-03-22] MEDS ORDERED: NITROGLYCERIN 2% OINTMENT 30GM TUBE EXT STA (15:19)
[2023-03-22] MEDS ORDERED: ASPIRIN CHEW 324 MG PO STA (15:24)
--- NOTE | 2023-03-22 15:39 | History & Physical Report ---
Date of Service March 22, 2023 Assessment & Plan (1) Back pain: Plan: Transverse upper back pain that woke the patient from sleep on the morning of 03/22 Radiated down her arms bilaterally Troponin elevated on arrival at 95.8, repeat pending EKG NSR; repeat EKG pending Lipase WNL CXR revealed NAF Acetaminophen 650 mg p.o. q4h as needed for back pain Patient declined Lidoderm patch as she does not believe it is musculoskeletal A.m. CBC, BMP (2) Elevated troponin: Plan: Troponin 95.8 on arrival, repeat pending Clinically, patient denies chest pain, but rather believes it was back and shoulder/arm pain Continuous telemetry monitoring (3) Chronic kidney disease, stage 3 (moderate): Plan: BUN 15, creatinine 1.20 (around baseline), EGFR 43.0 on arrival Avoid nephrotoxic agents where possible (4) Depression: Plan: Continue sertraline Continue donepezil (5) Dyslipidemia: Plan: Continue atorvastatin (6) HTN (hypertension): Plan: Continue losartan (7) Hypothyroidism: Plan: Continue levothyroxine (8) Anxiety: Plan: Continue lorazepam as needed Plan Disposition: [facility] DNR/DNI Regular diet VTE PPx: Heparin 5000u SQ q12h History of Present Illness Chief Complaint: Back injury/pain Primary Care Provider: DO Britt Soto is a 77-year-old female with PMH of of CKD stage III, chronic back pain, HTN, hypothyroidism, anxiety, depression, osteoarthritis, osteopenia, and dyslipidemia. She presented for transverse upper back pain and upon waking at 0830 on 03/22. The pain radiated down both arms bilaterally. She describes it as constant for around an hour and try to go back to sleep around 10 AM. She described it as a "burning pain" that was 8/10 at its worst. She is not having any pain at time of admission. No cardiac history. No history of MIs. She reports that she was lifting boxes for Christmasdurations this past week. She did not take anything in terms of medication at home for the pain. She reports she took her morning medications. Patient lives with her daughter (James) who is at the bedside. Patient notes that she has had bug bites on her legs recently, but is unsure if she has seen any ticks. She does note that she has an outdoor cat, and is wondering if she picks something up from the cat. Elevated blood pressure at 158/81 at time of admission; vitals otherwise stable. ED course: Aspirin 324 mg p.o. Nitro-Bid 2% topical Acetaminophen 1000 mg p.o. ROS: Patient endorses back pain, diarrhea (ongoing), urinary frequency (ongoing), mild urinary incontinence, and numbness/tingling in the UEs and LEs. Patient denies fever, chills, sweating, visual changes, fainting, rashes, neck pain, chest pain, SOB, abdominal pain, N/V, melena, blood in stool/urine, urinary symptoms, or burning with urination. No PMHx of AK, DVT/PE, CVA, diabetes Allergies Allergy/AdvReac Type Severity Reaction Status Date / Time NSAIDS (Non-Steroidal AdvReac Severe NO NSAIDS Verified 11/20/22 14:04 Anti-Inflamma PER DR BEE erythromycin base AdvReac Intermediate GI Verified 11/20/22 14:04 SENSITIVITY lisinopril AdvReac Intermediate Cough Verified 11/20/22 14:04 Absorbable Suture Allergy Mild drianage Uncoded 11/20/22 14:04 Home Medications Medication Instructions Recorded Confirmed Type cholecalciferol (vitamin D3) 50 2,000 units PO QAM #90 tabs 11/13/18 03/22/23 History mcg (2,000 unit) tablet coenzyme Q10 100 mg capsule 100 mg PO QAM 11/13/18 03/22/23 History acetaminophen 650 mg 650 mg PO Q12H PRN Pain 06/22/21 03/22/23 History tablet,extended release (Tylenol 8 Hour) cyanocobalamin (vitamin B-12) 1,000 mcg PO DAILY 04/30/22 03/22/23 History 1,000 mcg tablet lorazepam 0.5 mg tablet 0.5 mg PO DAILY PRN anxiety #10 09/18/22 03/22/23 Rx tabs atorvastatin 20 mg tablet 20 mg PO HS #90 tabs 11/07/22 03/22/23 Rx donepezil 5 mg tablet (Aricept) 5 mg PO DAILY #30 tabs 11/07/22 03/22/23 Rx losartan 100 mg tablet 100 mg PO QAM #90 tabs 12/17/22 03/22/23 Rx levothyroxine 75 mcg tablet 75 mcg PO QAM #90 tabs 01/07/23 03/22/23 Rx sertraline 25 mg tablet 25 mg PO DAILY #30 tabs 02/04/23 03/22/23 Rx folic acid 1 tab PO DIRECTED 03/22/23 03/22/23 History Past Med/Surg History Medical History Anxiety Chronic back pain Chronic kidney disease, stage 3 (moderate) Depression Dyslipidemia Hearing deficit HTN (hypertension) Hypothyroidism Osteoarthritis Osteopenia Prediabetes Restless leg Tubular adenoma of colon Urinary incontinence Vitamin D deficiency Surgical History History of bilateral knee arthroplasty History of bilateral tubal ligation History of biopsy History of bunionectomy of right great toe History of carpal tunnel release of both wrists History of colonoscopy History of left cataract surgery History of right cataract surgery History of tooth extraction S/P right hemicolectomy (11/2014) Family History Mother CHF (congestive heart failure) Heart disease Myocardial infarction Rheumatic heart disease H/O aortic valve replacement Family history of diabetes mellitus Father Glioblastoma Grandmother (Paternal) Melanoma Aunt Diabetes Aunt Diabetes Other No family history of adverse response to anesthesia Denies family history of Ovarian cancer Prostate cancer Breast cancer Colorectal cancer Social History Smoking Status: Never smoker Tobacco Type: Cigarettes Second Hand Exposure: Yes (hx); Do You Dip or Chew Tobacco: No; Hx Alcohol Use: Yes Alcohol type: wine Alcohol Intake Frequency: Monthly or Less Alcohol Intake Frequency Comment: social Hx Substance Use: No Preferred Language: Danish Communication Ability: Effective Visual Impairment: Limited Hearing Ability: Use of Hearing Aid Pipeline Dispatcher Required: No Beliefs That Will Affect Care: None marital status: Current Living Situation: Family Current Living Situation Comment: pt lives with daughter and family current occupational status: 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 Other Information That Helps Us Care for You: No Feels Safe at Home: Yes Safety Concerns: Feels Safe At This Time Childhood Exposure to Second-Hand Smoke: Yes Diet: regular Diet Comment: regular caffeine: Yes (coffee) during the past year weight has: remained stable Dental Care, Regularly: Yes Physical Activity Frequency: 1-2 Times per Week Seatbelt Use: always Sunscreen Use: No (rarely outside) Assistive Devices: Hearing Aid - Bilateral Review of Systems Review of Systems: See HPI above Physical Exam Physical Exam: General: no acute distress; non-toxic appearing; well-nourished; cooperative HEENT: normocephalic, atraumatic; no scleral icterus; PERRLA w/ EOMs intact; moist mucus membrane; vision and hearing grossly intact Neck: supple; no lymphadenopathy; trachea midline Skin: warm, dry without signs of tenting; no cyanosis; no rashes, bruising, lesions, or erythema noted CV: chest wall NTP; RRR; S1/S2 normal; no murmurs/rubs/gallops; pulses intact and symmetric at radial, DP, and PT Lungs: no acute respiratory distress; symmetrical chest wall expansion; clear breath sounds across all lung story w/o adventitious sounds; no wheezing ABD: Soft, NTP; BS present; no rebound/guarding; no ascites; no distention; negative CVA tenderness Back: Upper back is NTP, however some reproducible pain at the left posterior axilla; no rashes or bruising noted on the back MSK: no tics or fasciculations; no edema noted in the LEs b/l, nonerythematous Neuro: A&Ox3; normal mood and affect; fluent speech; no focal deficits; sensation grossly intact in the LEs B/L Results & Data Results & Data Vital Signs (Past 12 Hours) Vital Signs Temp Pulse Pulse Resp BP BP Pulse Ox 03/22/23 14:04 100 03/22/23 12:41 66 20 158/81 H 99 03/22/23 12:39 62 03/22/23 12:27 36.8 C 69 18 184/83 H 98 O2 Del Method 03/22/23 14:04 Room Air 03/22/23 12:41 Room Air 03/22/23 12:39 03/22/23 12:27 Room Air Laboratory Results Abnormal lab results 03/22/23 Range/Units 12:40 WBC 11.00 H (4.8-10.8) K/ul Neut # (Auto) 7.07 H (1.40-6.50) K/uL Edmunds # (Auto) 1.41 H (0.11-0.59) K/uL Troponin I High Sens 95.8 H* (0-14) pg/ml Diagnostic Findings Chest X-Ray 03/22/23 14:04 XR chest 1V portable CLINICAL HISTORY: Chest pain, nonspecific. COMPARISON STUDY: Chest CT June 03, 2012. Chest radiograph January 23, 2022. FINDINGS: Lung volumes are normal. Lungs are clear. There is no pneumothorax or pleural effusion. Cardiac size is stable. Mediastinal contours are normal. There is no evidence for pulmonary edema. IMPRESSION: No acute cardiopulmonary findings. ACT 112: Negative or not required by law. Electronically signed by: Cesario Rizvi M.D. 03/22/2023 2:43 PM Code Status & VTE Plan Code Status DNR/DNI VTE Prophylaxis Plan VTE Prophylaxis will be ordered: Yes PG Care Time/CCT Total # of Minutes Spent Total Time Spent with Patient: Total time spent is greater than 50% in coordination of care (as documented) at patient's floor/unit and/or counseling patient: Coding [place] [address] INT INP/OBS CARE 2/55MIN Patient Type Established History Comprehensive Exam Comprehensive Medical Decision Making Moderate Complexity Diagnoses Back pain M54.9 Elevated troponin R79.89 Chronic kidney disease, stage 3 (moderate) N18.3 Depression F32.9 Dyslipidemia E78.5 HTN (hypertension) I10 Hypothyroidism E03.9 Anxiety F41.9
[2023-03-22 16:55] LABS: C Reactive Protein < 0.50 mg/dl (0-0.5)
[2023-03-22 17:13] LABS: Troponin I High Sensitivity 250.6 pg/ml (0-14)
[2023-03-22 17:18] LABS: Lyme Ab IgG w/WB Rflx Negative (Negative); Lyme Ab IgM w/WB Rflx Negative (Negative)
--- OUTSIDE RECORDS SUMMARY | 2023-03-22 17:20 | External Medical Summary | Summary of Care ---
Author Name Unknown Organization [facility] Address [address] [place] [address] Phone [phone] Care Team Providers Care Office Administrator Name Role Phone Elan Castro MD Primary Care Provider [phone] Reason for Visit * Evaluate & Treat - Unlimited Visits (Within 10 days (routine)) - Authorized Specialty Diagnoses / Procedures Referred By Amilcar barksdale Referred To Contact Psychiatry / Psychology Diagnoses Other amnesia Kerline Lopez, PAC[facility]os[facility] [address] [place] [address] Referral ID Status Reason Start Date Expiration Date Visits Requested Visits Authorized [id number] Authorized Specialty Services Required 05/12/[phone] Encounter Details Date Type Department Care Team Description 10/29/2022 Therapy Neuropsychology, [place] [address], [place] [id number] Kiel Bee PsyD [address] [place], [place] [id number] Adjustment disorder with mixed anxiety and depressed mood* Allergies Active Allergy Reactions Severity Noted Date Comments Erythromycin 11/22/2011 GI distress burning up set stomach Nsaids 07/12/2016 documented as of this encounter (statuses as of 11/05/2022) Medications Medication Sig Dispensed Refills Start Date End Date Status COQ10 200 MG PO CAPS one capsule in am 0 Active VITAMIN D 1000 UNITS PO TABS daily 0 Active levothyroxine (LEVOXYL) 75 MCG Tablet Take 75 mcg by mouth daily first thing in the morning. 0 Active simvastatin (ZOCOR) 20 MG Tablet Take 20 mg by mouth every evening. 0 Active clonazePAM (KLONOPIN) 0.5 MG Tablet Take 0.5 mg by mouth at bedtime as needed for Insomnia. 0 Active FLUoxetine HCl (PROZAC) 40 MG Capsule Take 40 mg by mouth daily. 0 Active losartan (COZAAR) 50 MG Tablet 0 12/25/2016 Active documented as of this encounter (statuses as of 11/05/2022) Active Problems Problem Noted Date Closed fracture of parietal bone 017 Overview: Right parietal bone fracture with extra-axial bleeding (EDH vs SDH) Traumatic subdural hematoma without loss of consciousness 07/13/2016 Closed fracture of nasal bone 07/13/2016 Overview: Left nasal bone Nasal laceration 07/13/2016 Periorbital contusion 07/13/2016 Overview: Bilateral Fracture of cervical vertebrae, multiple , closed 07/13/2016 Overview: C4-C6 spinous process Closed fracture of first lumbar vertebra 07/13/2016 Overview: Compression deformity, likely chronic Fall from embankment 07/13/2016 Chronic rhinitis 03/03/2013 Subjective tinnitus 09/09/2012 Sensory hearing loss, unilateral 013 Esophageal reflux 09/09/2012 documented as of this encounter (statuses as of 11/05/2022) Social History Tobacco Use Types Packs/Day Years Used Date Smoking Tobacco: Never Smokeless Tobacco: Never Alcohol Use Standard Drinks/Week Comments Yes 0 (1 standard drink = 0.6 oz pur e alcohol) Rare Sex Assigned at Date Recorded Not on file documented as of this encounter Functional Status Functional Status Response Date of Assess ment Are you deaf or do you have serious difficulty h earing? No 07/13/2016 Are you blind or do you have serious difficulty seeing, even when wearing glasses? No 07/13/2016 Do you have difficulty dress ing or bathing? (5 years old or older) No 07/13/2016 Because of a physical, menta l, or emotional condition, do you have difficulty doing errands alone such as visiting a doctor s office or shopping? (15 years old or older) No 07/14/19 17 Cognitive Status Response Date of Assessm ent Because of a physical, menta l, or emotional condition, do you have serious difficulty concentrating, remembering, or making decisions? (5 years old or older No 07/13/2016 documented as of this encounter Progress Notes * Kiel Bee PsyD - 10/29/2022 1:08 PM EDT NEUROPSYCHOLOGICAL EVALUATION Neuropsychology, [address] [address] 10/29/2022 1:08 PM Referring Provider: Elan Castro MD Consent: Informed consent, limits of confidentiality, the consultative nature of the visit, and documentation in the electronic record were reviewed. REASON FOR REFERRAL Britt Neil is a 77 year old female who was referred for a neuropsychological evaluation due to cognitive concerns SUMMARY OF ASSESSMENT IMPRESSIONS Full results to follow on scoring and analysis of results PRESENTING PROBLEM Pt reports she had a couple spells of confusion, back in November. Had an episode with her daughter last month, and has been on an antidepressant. She had an episode of passing out, has been over a year ago. She has hx of a bad fall with TBI in 2017. She came with her daughter and her sister. Memory - pt denied anything beyond normal aging Language - denied px Reading - denied px Writing denied px Vision prior cataract surgery, some clouding of vision on L Hearing has had hearing aides since age 58 A/V hallucinations denied px Falls/balance problems nothing recent Tremors denied Pain - arthritis and shoulder pain after fall in 2017, just occasional ADLs/IADLs: Driving denied driving for about a year since last episode of confusion Finances - manages for most part Medications independent Cooking denied px Housekeeping denied px Mood: Has been good since Zoloft, better since seeing friends Depression - some isolation Anxiety - normal anxieties DEVELOPMENTAL HISTORY , delivery, known complications denied px Developmental milestones denied px History of childhood accidents/illnesses/head injuries denied px Childhood trauma, abuse, neglect not reported EDUCATIONAL HISTORY Highest level achieved - Nursing school Problems with learning denied VOCATIONAL HISTORY 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 simvastatin (ZOCOR) 20 MG Tablet Take 20 mg by mouth every evening. clonazePAM (KLONOPIN) 0.5 MG Tablet Take 0.5 mg by mouth at bedtime as needed for Insomnia. FLUoxetine HCl (PROZAC) 40 MG Capsule Take 40 mg by mouth daily. losartan (COZAAR) 50 MG Tablet No current facility-administered medications for this visit. MENTAL HEALTH HISTORY Past/Current treatment: Some depression since left many years ago Medication compliance: Compliant with all prescribed medicines HEALTH BEHAVIORS ETOH: Occasional, social, few drinks/month. Illicit Drugs: denied. Evidence of risky use: No Impaired Control: No DUI/Legal: No Tolerance/Withdrawal: No Nicotine: Never Caffeine: 6 cups/day Sleep: good. Pain level 0-10: Current: 0 MEDICAL PROBLEMS No past medical history on file. FAMILY HISTORY Family History Problem Relation Age of Onset Allergies Mother Seasonal Arthritis Mother Diabetes Mother Type II Ear Problems Mother Hard of hearing Eye Problems Mother Cataract Heart Disorder Mother Aortic Valve replacement Hypertension Mother Renal Hx Mother decreased kidney function Thyroid Disorder Mother Hypothyroid NEUROIMAGING Brain MRI Head CT Per radiology report of MENTAL STATUS AND BEHAVIORAL OBSERVATIONS Sensorium: Alert Orientation: Patient was oriented to person, place, and to time. Appearance: dress appropriate to season, setting, casual Grooming, Hygiene: Good Behavior: Pleasant and cooperative Speech/language: Volume (hypophonic?)Mild word finding problems were noted in conversation and during testing. Otherwise was spontaneous and fluent. ( circumlocution? Eg describing a word, semantic or phonemic paraphasias? fluent but uninformative? Ie empty speech, eg I went with my friend to the thing over there) Gait/Posture: Parkinsonian = slow, shuffling steps, which increase speed after initiation. Frontal gait = magnetic, ie walking in little steps. Normal. Social Comportment: Appropriate. Humorous Mood: Euthymic Affect: Mood-congruent Thought process: Logical, goal-directed responding Thoughts were logical and linear yet generally concrete and unexpansive. No SI/HI - PHQ-9 item 9 = 0 when administered verbally Insight: Fair ADMINISTRATIVE ELEMENTS Services associated with the current encounter Clinical interview (23168), plus 60 minutes [id number] 120 minutes 42199 30 minutes [id number] 90 minutes 10541 Communication sent to referring provider and other team members. The assessment for Britt is detailed at the beginning of this report. Kiel Bee PsyD, ABN Neuropsychologist Division of Psychiatry & Behavioral Medicine [facility] [phone] documented in this encounter Plan of Treatment Scheduled Referrals Name Type Priority Associated Diagnoses Order Schedule NEUROPSYCHOLOGY REFERRAL OP Referral Within 10 days (routine) Other amnesia Ordered: 05/12/2022 Health Maintenance Due Date Last Done Comments DXA Scan 1945 COVID-19 Vaccine (#1) 1945 Depression Screening, Annual for Pts 12 and Over 1955 Hepatitis C Screening 1961 TSH 1961 DTaP,Tdap,and Td Vaccines (1 - Tdap) 1962 Zoster Vaccines (1 of 2) 1993 Pneumococcal Vaccine: 65+ Ye ars (1 - PCV) 2008 Influenza Vaccine (FLU shot) (#1) 2022 GARDASIL-HPV IMMUNIZATION SERIES Aged Out No longer eligible based on patient's age to complete this topic Hepatitis B Aged Out No longer eligi ble based on patient's age to complete this topic MENINGOCOCCAL (MENACTRA/MENVEO) Aged Out No longer eligible based on patient's age to complete this topic documented as of this encounter Medical Devices Not on filedocumented as of this encounter Visit Diagnoses Diagnosis Adjustment disorder with mixed anxiety and depressed mood- Primary documented in this encounter Advance Directives Latest Code Status on File Code Status Date Activated Date Inactivated Comments Full Code 07/12/2016 10:57 PM 07/16/2016 7:48 PM This order reflects the patients wishes and were consensually agreed upon. Question Answer Comments Discussion of Advance Directives occurred with: Not Discussed Does the patient have a Living Will? No Does the patient have Health Care Power of Ski Topper? No Care Teams Office Administrator Relationship Specialty Start Date End Date Elan Castro MD [address] [place], [place] [address] PCP - General Internal Medicine 03/03/14 documented as of this encounter
--- OUTSIDE RECORDS SUMMARY | 2023-03-22 17:20 | External Medical Summary | Summary of Care ---
Author Name Unknown Organization [facility] Address [address] [place] [address] Phone [phone] Care Team Providers Care Clinical Ob Name Role Phone Elan Castro MD Primary Care Provider [phone] Encounter Details Date Type Department Care Team Description 10/01/2022 Orders Only Outcomes Research Department [address], [place] [id number] Cleopatra Monge CHRA [facility] Other*[id number] Allergies Active Allergy Reactions Severity Noted Date Comments Erythromycin 11/22/2011 GI distress burning up set stomach Nsaids 07/12/2016 documented as of this encounter (statuses as of 10/01/2022) Medications Medication Sig Dispensed Refills Start Date [...] as of this encounter (statuses as of 10/01/2022) Active Problems Problem Noted Date Closed fracture [...] as of this encounter (statuses as of 10/01/2022) Social History Tobacco Use Types Packs/Day Years [...] No 07/13/2016 documented as of this encounter Plan of Treatment Upcoming Encounters Date Type Specialty Care Team Description 10/29/2022 Therapy Psychiatry Kiel Bee PsyD [address] [place] [address] Scheduled Orders Name Type Priority Associated Diagnoses Orde r Schedule MYCODE INITIAL ADULT Lab Routine [facility] Research Other*[id number] Expected: 10/01/2022 (Approximate), Expires: 10/21/2023 Health Maintenance Due Date Last Done Comments DXA Scan 1945 COVID-19 Vaccine (#1) 1945 Depression Screening, Annual for Pts 12 and Over 1955 Hepatitis C Screening 1961 TSH 1961 DTaP,Tdap,and Td Vaccines (1 - Tdap) 1962 Zoster Vaccines (1 of 2) 1993 Pneumococcal Vaccine: 65+ Ye ars (1 - PCV) 2008 Influenza Vaccine (FLU shot) (Season Ended) 2022 GARDASIL-HPV IMMUNIZATION SERIES Aged Out No [...] as of this encounter Visit Diagnoses Diagnosis [facility] Other*[id number] documented in this encounter Advance Directives Latest [...] the patient have Health Care Power of Cigarette Filter Inspector? No Care Teams Clinical Ob Relationship Specialty Start Date End Date Elan Castro MD [address] [place] [address] PCP - General Internal Medicine 03/03/14 documented as of this encounter
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
--- OUTSIDE RECORDS SUMMARY | 2023-03-22 17:20 | External Medical Summary | Summary of Care ---
Author Name Unknown Organization [facility] Address [address] [place] [address] Phone [phone] Care Team Providers Care Stoker Installer Name Role Phone Elan Castro MD Primary Care Provider Reason for Visit * Reason Onset Date Comments Other 11/08/2022 Encounter Details Date Type Department Care Team (Late st Contact Info) Description 11/08/2022 Telephone Neuropsychology, [place] [address] [place] [address] Kiel Bee, [facility] [address] [place] [address] Other Allergies Active Allergy Reactions Criticality Noted Date Comments Erythromycin 11/22/2011 GI distress burning up set stomach Nsaids 07/12/2016 documented as of this encounter (statuses as of 02/07/2023) Medications Medication Sig Dispensed Refills Start Date [...] as of this encounter (statuses as of 02/07/2023) Active Problems Problem Noted Date Diagnosed Date Closed fracture of parietal bone 07/13/2016 Overview: Right parietal bone fracture with extra-axial bleeding (EDH vs SDH) Traumatic subdural hematoma without loss of cons ciousness 07/13/2016 Closed fracture of nasal bone 07/13/2016 Overview: Left nasal bone Nasal laceration 07/13/2016 Periorbital contusion 07/13/2016 Overview: Bilateral Fracture of cervical vertebrae, multiple, closed 07/13/2016 Overview: C4-C6 spinous process Closed fracture of first lumbar vertebra 017 Overview: Compression deformity, likely chronic Fall from embankment 07/13/2016 Chronic rhinitis 03/03/2013 Subjective tinnitus 09/09/2012 Sensory hearing loss, unilateral 09/09/2012 Esophageal reflux 09/09/2012 documented as of this encounter (statuses as of 02/07/2023) Social History Tobacco Use Types Packs/Day Years Used Date Smoking Tobacco: Never Smokeless Tobacco: Never Alcohol Use Standard Drinks/Week Comments Yes 0 (1 standard drink = 0.6 oz pur e alcohol) Rare Sex and Gender Information Value Date Recorded Sex Assigned at Not on file Gender Identity Not on file Sexual Orientation Not on file documented as of this [...] No 07/13/2016 documented as of this encounter Miscellaneous Notes * Telephone Encounter - Sydnee Garcia OSA - 11/08/2022 4:14 PM EDT Patient requesting a call back regarding having a MRI done. Britt wants to know if she will be able to go to [facility] to have the MRI done or should she go to a [facility] lab. documented in this encounter Plan of Treatment Health Maintenance Due Date Last Done Comments DXA Scan 1945 COVID-19 Vaccine (#1) 1945 Depression Screening 1955 Hepatitis C Screening 1961 TSH 1961 [...] Not on filedocumented as of this encounter Advance Directives Latest Code Status on File Code Status Date Activated Date Inactivated Comments Full Code 07/12/2016 10:57 PM 07/16/2016 7:48 PM This order reflects the patients wishes and were consensually agreed upon. Question Answer Comments Discussion of Advance Directives occurred with: Not Discussed Does the patient have a Living Will? No Does the patient have Health Care Power of Cloth Shrinking Machine Operator Helper? No Care Teams Stoker Installer Relationship Specialty Start Date End Date Elan Castro MD [address], [place] [address] PCP - General Internal Medicine 03/03/14 documented as of this encounter
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
--- OUTSIDE RECORDS SUMMARY | 2023-03-22 17:20 | External Medical Summary | Summary of Care ---
Author Name Unknown Organization [facility] Address [address] [place] [address] Phone [phone] Care Team Providers Care Gasoline Service Attendant Name Role Phone Elan Castro MD Primary Care Provider [phone] Reason for Visit * Reason Onset Date Comments Test Results 11/07/2022 Encounter Details Date Type Department Care Team Description 11/07/2022 Telephone Neuropsychology, [place] [address] [place] [address] Kiel Bee, [place] [address] [place] [address] Test Results Allergies Active Allergy Reactions Severity Noted Date Comments Erythromycin 11/22/2011 GI distress burning up set stomach Nsaids 07/12/2016 documented as of this encounter (statuses as of 11/07/2022) Medications Medication Sig Dispensed Refills Start Date [...] as of this encounter (statuses as of 11/07/2022) Active Problems Problem Noted Date Closed fracture [...] as of this encounter (statuses as of 11/07/2022) Social History Tobacco Use Types Packs/Day Years [...] encounter Miscellaneous Notes * Telephone Encounter - Kiel Blaise Bee PsyD - 11/07/2022 6:33 PM EDT Returned call to Britt, discussed results of neuropsychological evaluation. Discussed report sentto referring provider at [facility] (Kerline Briseno PA-C). Her questions were answered. Discussed using [employer] to see if there are any resources for transportation in her area. documented in this encounter Plan of Treatment [...] the patient have Health Care Power of Delimer? No Care Teams Gasoline Service Attendant Relationship Specialty Start Date End Date Elan Castro MD [address] [facility] [address] [place] [address] PCP - General Internal Medicine 03/03/14 documented as of this encounter
--- OUTSIDE RECORDS SUMMARY | 2023-03-22 17:20 | External Medical Summary | Summary of Care ---
Author Name Unknown Organization [facility] Address [address] [place] [address] Phone [phone] Care Team Providers Care Medical Surgery Nurse Name Role Phone Elan Castro MD Primary Care Provider [phone] Reason for Visit * Reason Onset Date Comments Other 10/30/2022 Encounter Details Date Type Department Care Team (Late st Contact Info) Description 10/30/2022 Telephone Neuropsychology, [place] [address] [place], [place] [id number] Kiel Bee, [facility] [address] [place] [address] Other (/) Allergies Active Allergy Reactions Criticality Noted Date Comments Erythromycin 11/22/2011 GI distress burning up set stomach Nsaids 07/12/2016 documented as of this encounter (statuses as of 01/29/2023) Medications Medication Sig Dispensed Refills Start Date [...] as of this encounter (statuses as of 01/29/2023) Active Problems Problem Noted Date Diagnosed Date [...] as of this encounter (statuses as of 01/29/2023) Social History Tobacco Use Types Packs/Day Years [...] encounter Miscellaneous Notes * Telephone Encounter - Danica Wan OSA - 11/07/2022 2:23 PM EDT Patient is calling to talk to you about her results of her testing. States she has been awaiting your call since last Saturday. She would like to have you call her ([phone]) and also her daughter, Justin, ([phone]) * Telephone Encounter - Danica Wan OSA - 10/30/2022 2:18 PM EDT Patient's daughter Jimena calling (she has healthcare POA for mom) to see how the neuropsych testing went at her appt yesterday,. I explained to her that results take a while to compile into a report, etc. She states that is fineshdoretha just wanted to know how she did at appt. Jimena - [phone] documented in this encounter Plan of Treatment [...] the patient have Health Care Power of Product Introduction Manager? No Care Teams Medical Surgery Nurse Relationship Specialty Start Date End Date Elan Castro MD [address] [place] [address] PCP - General Internal Medicine 03/03/14 documented as of this encounter
--- OUTSIDE RECORDS SUMMARY | 2023-03-22 17:20 | External Medical Summary | Summary of Care ---
Author Name Unknown Organization [facility] Address [address] [place] [address] Phone [phone] Care Team Providers Care Admin Asst Name Role Phone Elan Castro MD Primary Care Provider [phone] Reason for Visit * Evaluate & Treat - Unlimited Visits (Within 10 days (routine)) - Authorized Specialty Diagnoses / Procedures Referred By Amilcar barksdale Referred To Contact Psychiatry / Psychology Diagnoses Other amnesia Kerline Lopez, PACarlosC [address] [place] [address] Referral ID Status Reason Start Date Expiration Date Visits Requested Visits Authorized [id number] Authorized Specialty Services Required 05/12/2022 999 999 Encounter Details Date Type Department Care Team Description 10/29/2022 Therapy Neuropsychology, [place] [address] [place], [place] [id number] Kiel Bee PsyD [address] [place], [place] [id number] Adjustment disorder with mixed anxiety and depressed mood* Allergies Active Allergy Reactions Severity Noted Date Comments Erythromycin 11/22/2011 GI distress burning up set stomach Nsaids 07/12/2016 documented as of this encounter (statuses as of 10/31/2022) Medications Medication Sig Dispensed Refills Start Date [...] as of this encounter (statuses as of 10/31/2022) Active Problems Problem Noted Date Closed fracture [...] as of this encounter (statuses as of 10/31/2022) Social History Tobacco Use Types Packs/Day Years [...] 10/29/2022 1:08 PM EDT NEUROPSYCHOLOGICAL EVALUATION Neuropsychology, [address] [address] 10/29/2022 1:08 PM Referring Provider: Elan Castro [...] HISTORY 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 The assessment for Britt is detailed at the beginning of this report. Kiel Bee PsyD, ABN Neuropsychologist Division of Psychiatry & Behavioral Medicine [facility] [phone] documented in this encounter Plan of Treatment [...] the patient have Health Care Power of Leather Dresser? No Care Teams Admin Asst Relationship Specialty Start Date End Date Elan Castro MD [address] [place], [place] [address] PCP - General Internal Medicine 03/03/14 documented as of this encounter
--- OUTSIDE RECORDS SUMMARY | 2023-03-22 17:20 | External Medical Summary | Summary of Care ---
Author Name Unknown Organization [facility] Address [address] [place] [address] Phone [phone] Care Team Providers Care Sheet Mill Supervisor Name Role Phone Elan Castro MD Primary Care Provider [phone] Reason for Visit * Evaluate & Treat - Unlimited Visits (Within 10 days (routine)) - Authorized Specialty Diagnoses / Procedures Referred By Amilcar barksdale Referred To Contact Psychiatry / Psychology Diagnoses Other amnesia Kerline Lopez, PACarlosC [address] [place] [address] Referral ID Status Reason Start Date Expiration Date Visits Requested Visits Authorized [id number] Authorized Specialty Services Required 05/12/2022 999 999 Encounter Details Date Type Department Care Team Description 10/29/2022 Therapy Neuropsychology, [place] [address] [place], [place] [id number] Kiel Bee PsyD [address] [place], [place] [address] Adjustment disorder with mixed anxiety and depressed mood* Allergies Active Allergy Reactions Severity Noted Date Comments Erythromycin 11/22/2011 GI distress burning up set stomach Nsaids 07/12/2016 documented as of this encounter (statuses as of 10/29/2022) Medications Medication Sig Dispensed Refills Start Date [...] as of this encounter (statuses as of 10/29/2022) Active Problems Problem Noted Date Closed fracture [...] as of this encounter (statuses as of 10/29/2022) Social History Tobacco Use Types Packs/Day Years [...] 10/29/2022 1:08 PM EDT NEUROPSYCHOLOGICAL EVALUATION Neuropsychology, [address] [address] 10/29/2022 1:08 PM Referring Provider: Elan Castro [...] 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 The assessment for Britt is detailed at the beginning of this report. Kiel Bee PsyD, ABN Neuropsychologist Division of Psychiatry & Behavioral Medicine [facility] [phone] documented in this encounter Plan of Treatment [...] the patient have Health Care Power of Rim Roller Operator? No Care Teams Sheet Mill Supervisor Relationship Specialty Start Date End Date Elan Castro MD [address] [place], [place] [address] PCP - General Internal Medicine 03/03/14 documented as of this encounter
[2023-03-22] MEDS ORDERED: LORazepam 0.5 MG TAB PO PRN (18:31)
[2023-03-22] MEDS ORDERED: ACETAMINOPHEN 325 MG TAB PO PRN (18:31)
[2023-03-22] MEDS ORDERED: ATORVASTATIN 20 MG TAB PO SCH (21:00)
[2023-03-22] MEDS: HEPARIN SOD 5,000 UNIT/0.5 ML VIAL SQ SCH (21:49)
[2023-03-23] MEDS ORDERED: LEVOTHYROXINE SODIUM 75 MCG TABLET PO SCH (06:30)
--- NOTE | 2023-03-23 06:57 | Electrocardiogram Report ---
Test Reason : Blood Pressure : / mmHG Vent. Rate : 070 BPM Atrial Rate : 070 BPM P-R Int : 184 ms QRS Dur : 074 ms QT Int : 436 ms P-R-T Axes : 101 053 034 degrees QTc Int : 470 ms Normal sinus rhythm Nonspecific T wave abnormality When compared with ECG of 22-MAR-2023 12:37, No significant change was found Confirmed by Dmitri Rodriguez ([id number]) on 03/23/2023 6:57:17 AM Referred By: REFERRED SELF Confirmed By:Dmitri Rodriguez
--- NOTE | 2023-03-23 07:37 | Hospitalist Progress Note ---
Date of Service March 23, 2023 Assessment & Plan (1) Back pain: Plan: Transverse upper back pain that woke the patient from sleep on the morning of 03/22 Radiated down her arms bilaterally Troponin elevated on arrival at [phone] EKG NSR; Lipase WNL CXR revealed NAF Acetaminophen 650 mg p.o. q4h as needed for back pain (2) Elevated troponin: Plan: Troponin 95.8 on arrival, repeat pending Clinically, patient denies chest pain, but rather believes it was back and shoulder/arm pain Continuous telemetry monitoring (3) Chronic kidney disease, stage 3 (moderate): Plan: BUN 15, creatinine 1.20 (around baseline), EGFR 43.0 on arrival Avoid nephrotoxic agents where possible (4) Depression: Plan: Continue sertraline Continue donepezil (5) Dyslipidemia: Plan: Continue atorvastatin (6) HTN (hypertension): Plan: Continue losartan (7) Hypothyroidism: Plan: Continue levothyroxine (8) Anxiety: Plan: Continue lorazepam as needed Plan Disposition: Admit to [facility] telemetry DNR/DNI Regular diet VTE PPx: Heparin 5000u SQ q12h Admission and Anticipated Discharge Date Admission Date: March 22, 2023 Results & Data Results & Data Vital Signs (Past 12 Hours) Vital Signs Temp Pulse Pulse Resp BP Pulse Ox O2 Del Method 03/23/23 05:59 63 03/23/23 04:10 97.9 F 58 L 18 138/73 95 Room Air 03/22/23 23:15 98.2 F 63 18 119/58 L 95 Room Air 03/22/23 22:25 64 03/22/23 20:15 98.6 F 62 18 138/72 94 Room Air PG Care Time/CCT Total # of Minutes Spent Total Time Spent with Patient: Total time spent is greater than 50% in coordination of care (as documented) at patient's floor/unit and/or counseling patient: Coding Diagnoses Back pain M54.9 Elevated troponin R79.89 Chronic kidney disease, stage 3 (moderate) N18.3 Depression F32.9 Dyslipidemia E78.5 HTN (hypertension) I10 Hypothyroidism E03.9 Anxiety F41.9
[2023-03-23] MEDS ORDERED: SODIUM CHLORIDE 0.9% 1,000 ML IV SCH (08:00)
[2023-03-23 08:50] LABS: Basophils # (auto) 0.05 K/uL (0.00-0.20); Basophils % (auto) 0.8 %; Eosinophils # (auto) 0.22 K/uL (0.00-0.50); Eosinophils % (auto) 3.4 %; Hemoglobin 13.7 g/dl (12.0-16.0); Immature Granulocytes # (auto) 0.03 K/uL (0.01-0.20); Immature Granulocytes % (auto) 0.5 %; Lymphocytes # (auto) 1.68 K/uL (1.20-3.40); Lymphocytes % (auto) 25.7 %; Mean Corpuscular Hemoglobin 29.9 pg (25.0-34.0); Mean Corpuscular Hgb Conc 34.3 g/dL (32.0-36.0); Mean Corpuscular Volume 87.3 fL (80.0-100.0); Monocytes # (auto) 0.68 K/uL (0.11-0.59); Monocytes % (auto) 10.4 %; Neutrophils # (auto) 3.88 K/uL (1.40-6.50); Neutrophils % (auto) 59.2 %; Platelet Count 203 K/uL (130-400); RDW Coefficient of Variation 13.2 % (11.5-14.5); RDW Standard Deviation 41.9 fL (36.4-46.3); Red Blood Count 4.58 M/uL (4.20-5.40); White Blood Count 6.54 K/ul (4.8-10.8)
[2023-03-23] MEDS ORDERED: LOSARTAN POTASSIUM 50 MG TAB PO SCH (09:00)
[2023-03-23] MEDS ORDERED: SERTRALINE HCL 50 MG TABLET PO SCH (09:00)
[2023-03-23] MEDS ORDERED: DONEPEZIL HCL 5 MG TAB PO SCH (09:00)
[2023-03-23 09:04] LABS: BUN Creatinine Ratio 13.6 (10-20); Calcium 9.2 mg/dl (8.6-10.3); Creatinine Clr Calc Pharmacy 34.5 ml/min; Est GFR (African American) 47.4 ml/min; Est GFR (Non-African American) 40.9 ml/min
[2023-03-23] MEDS: HEPARIN SOD 5,000 UNIT/0.5 ML VIAL SQ SCH (09:04)
[2023-03-23] MEDS ORDERED: OPTIRAY 320 125ml IV ONE (11:04)
--- NOTE | 2023-03-23 11:32 | CT Scan Report ---
CT ANGIOGRAPHY OF THE CHEST DISSECTION PROTOCOL CLINICAL HISTORY: Mid scapular back pain. Evaluate for dissection. COMPARISON STUDY: Chest CT June 03, 2012. Chest radiograph March 22, 2023. TECHNIQUE: Before and following the IV administration of 115 mL of Optiray, helical axial images of t he chest were obtained. Maximal intensity projections and sagittal and coronal reformats were viewed on an independent 3D workstation. IV contrast was administered without complication. Automated exp osure control was utilized for the study. A dose lowering technique was utilized adhering to the [facility] chela PELAEZ. CT DOSE: 1170.97 mGy.cm FINDINGS: The caliber of the thoracic aorta is normal. There is no intramural hematoma or thoracic a ortic dissection. Moderate cardiomegaly and coronary artery calcification is present. No pericardial effusion is present. No pulmonary emboli are identified. There is no pneumothorax. There are trace bi lateral pleural effusions. There is no consolidation to suggest pneumonia. No pulmonary nodules are p resent. Old L1 compression deformity is unchanged since CT of June 03, 2012. There is mild compressio n fracture of the superior endplate of T4 which is new since that exam. Subtle linear lucency along t he superior plate is present. There are mildly enlarged bilateral hilar lymph nodes. Index left hilar node on image 101 of 229 measures 1.6 x 1.3 cm. IMPRESSION: 1. No thoracic aortic dissection. 2. No consolidation to suggest pneumonia. Trace bilateral pleural effusions. 3. Mild T4 compression fracture. This is likely acute to subacute infarct could account for the patie nt's pain. 4. Mildly enlarged bilateral hilar lymph nodes. These are nonspecific. A follow-up chest CT in 6 grace hs to ensure stability/resolution is recommended. 5. Moderate cardiomegaly and coronary artery calcification. ACT 112: Negative or not required by law. Electronically signed by: Cesario Rizvi M.D. 03/23/2023 11:31 AM
--- NOTE | 2023-03-23 15:12 | XCELERA ---
[id number] \\[id number]\[id number]_PDF_[id number]}___[id number].pdf
--- NOTE | 2023-03-23 15:49 | Communication Note ---
Date of Service: March 23, 2023 By CMS guidelines, a determination that the admission or continued stay is not medically necessary has been made by a member of the UR committee and glendy carter for this hospital stay, therefore a Code 44 will be completed and the Inpatient admission will be changed to outpatient. Ines Younger M.D.
--- NOTE | 2023-03-23 16:24 | Discharge Summary ---
Date of Service March 23, 2023 Admission HPI Per Admitting Provider Britt is a 77-year-old female with PMH of of CKD stage III, chronic back pain, HTN, hypothyroidism, anxiety, depression, osteoarthritis, osteopenia, and dyslipidemia. She presented for transverse upper back pain and upon waking at 0830 on 03/22. The pain radiated down both arms bilaterally. She describes it as constant for around an hour and try to go back to sleep around 10 AM. She described it as a "burning pain" that was 8/10 at its worst. She is not having any pain at time of admission. No cardiac history. No history of MIs. She reports that she was lifting boxes for Christmasdurations this past week. She did not take anything in terms of medication at home for the pain. She reports she took her morning medications. Patient lives with her daughter (James) who is at the bedside. Patient notes that she has had bug bites on her legs recently, but is unsure if she has seen any ticks. She does note that she has an outdoor cat, and is wondering if she picks something up from the cat. Elevated blood pressure at 158/81 at time of admission; vitals otherwise stable. ED course: Aspirin 324 mg p.o. Nitro-Bid 2% topical Acetaminophen 1000 mg p.o. ROS: Patient endorses back pain, diarrhea (ongoing), urinary frequency (ongoing), mild urinary incontinence, and numbness/tingling in the UEs and LEs. Patient denies fever, chills, sweating, visual changes, fainting, rashes, neck pain, chest pain, SOB, abdominal pain, N/V, melena, blood in stool/urine, urinary symptoms, or burning with urination. No PMHx of HI, DVT/PE, CVA, diabetes Principal Diagnosis 4th thoracic vertebrae compression fracture non cardiac chest pain elevated troponin not felt to be acute coronary event Discharge Exam Awake alert appropriate. No recurrence of pain No pain to palpation of the T4 area Tender right trapezius associate with a muscle knot Card exam is regular without murmur Lungs are clear Discharge Data Allergies Allergy/AdvReac Type Severity Reaction Status Date / Time NSAIDS (Non-Steroidal AdvReac Severe NO NSAIDS Verified 11/20/22 14:04 Anti-Inflamma PER DR BEE erythromycin base AdvReac Intermediate GI Verified 11/20/22 14:04 SENSITIVITY lisinopril AdvReac Intermediate Cough Verified 11/20/22 14:04 Absorbable Suture Allergy Mild drianage Uncoded 11/20/22 14:04 Ordered Studies 03/23/23 11:00 CT angio chest dissec wo/w con Routine no evidence of PE hilar lymphadenopathy seen recommended follow-up 6-month Echocardiogram with preserved ejection fraction no regional wall motion abnormalities, borderline pulmonary hypertension with a PASP of 35-40 Hospital Course (1) Back pain: Transverse upper back pain that woke the patient from sleep on the morning of 03/22 CTA of chest to rule out PE which did shows subacute T4 vertebral body fracture Troponin elevated on arrival at [phone] felt to be not due to ACS perhaps due to pulm hypertension as noted on echocardiogram EKG NSR; Lipase WNL CXR revealed NAF Acetaminophen 650 mg p.o. q4h as needed for back pain Since echocardiogram did not regional wall motion abnormalities and troponin elevation with slight peaked think rest that left perform any additional risk factor stratification as patient has been mild symptoms during the rest of her hospital stay (2) Chronic kidney disease, stage 3 (moderate): BUN 15, creatinine 1.20 (around baseline), EGFR 43.0 on arrival Avoid nephrotoxic agents where possible (3) Depression: Continue sertraline Continue donepezil (4) Dyslipidemia: Continue atorvastatin (5) HTN (hypertension): Continue losartan (6) Hypothyroidism: Continue levothyroxine (7) Anxiety: Continue lorazepam as needed Plan With the patient's fracture recommended osteoporotic follow-up with her family physician With lymphadenopathy seen on CT scan recommend follow-up with [address] scan coordinate with family physician Total Time Total Time Spent Total Time Spent (In Minutes): It required greater than 30 minutes to prepare this patient for discharge. Discharge Plan Discharge Items Patient Disposition: Home - Self-Care Reason For Visit: BACK/SHOULDER PAIN, ELEVATED TROPONIN Discharge Diagnosis: 4th thoracic vertebrae compression fracture non cardiac chest pain elevated troponin not felt to be acute coronary event Activity: Per Instructions section Activity Comment: initally avoid activities that make pain worse Non-emergency contact: Primary Care Provider Call non-emergency contact if: your symptoms worsen Follow-up/Referrals: Rebeca Willard DO [Primary Care Provider] - 04/08/23 9:20 am Diet: Regular Addtl Attending Provider Instructions: Please rest and recover and avoid movements that make pain worse Please follow up with your primary care doctor in about a week Addtl Story Analyst Provider Instructions: There are some enlarged lymphnodes seen on your CT scan, at this time they are not alarming but your primary care doctor can repeat a CT in 6 months to be sure that they are not changing with compression fracture please follow up with your family doctor to discuss osteoporosis Pending Studies at Discharge: No Stand-Alone Forms: My [facility] [email or web address], Smoking Cessation Medications and DC Order Prescriptions: Continued cyanocobalamin (vitamin B-12) 1,000 mcg tablet 1,000 mcg PO DAILY atorvastatin 20 mg tablet 20 mg PO HS Qty: 90 1RF donepezil [Aricept] 5 mg tablet 5 mg PO DAILY Qty: 30 5RF Hold Instructions: Q other day monitor for improvment 3-4 days Rx Instructions: take in the morning losartan 100 mg tablet 100 mg PO QAM Qty: 90 1RF levothyroxine 75 mcg tablet 75 mcg PO QAM Qty: 90 1RF sertraline 25 mg tablet 25 mg PO DAILY Qty: 30 2RF acetaminophen [Tylenol 8 Hour] 650 mg tablet extended release 650 mg PO Q12H PRN (Reason: Pain) cholecalciferol (vitamin D3) 2,000 unit tablet 2,000 units PO QAM Qty: 90 coenzyme Q10 100 mg capsule 100 mg PO QAM lorazepam 0.5 mg tablet 0.5 mg PO DAILY PRN (Reason: anxiety) Qty: 10 0RF folic acid 1 tab PO DIRECTED Discharge Orders: Discharge Order (Routine); Ordered 03/23/23 Ordered By: Toney Jones Admission Data Admit Date/Time: 03/22/23 16:30 Attending Provider: Toney Jones Admit Provider: Toney Jones Primary Care Provider: Rebeca Willard Coding Level of Care Code 31533 INP/OBS DISCH >30 MIN Diagnoses Back pain M54.9 Chronic kidney disease, stage 3 (moderate) N18.3 Depression F32.9 Dyslipidemia E78.5 HTN (hypertension) I10 Hypothyroidism E03.9 Anxiety F41.9
--- NOTE | 2023-03-24 09:20 | Electrocardiogram Report ---
Test Reason : Blood Pressure : / mmHG Vent. Rate : 066 BPM Atrial Rate : 066 BPM P-R Int : 176 ms QRS Dur : 082 ms QT Int : 432 ms P-R-T Axes : 079 057 047 degrees QTc Int : 452 ms Normal sinus rhythm Normal ECG When compared with ECG of 24-JAN-2022 00:33, No significant change was found Confirmed by Ron Fernandes ([id number]) on 03/24/2023 9:20:07 AM Referred By: REFERRED SELF Confirmed By:Ron Fernandes
== END 2023-03-23 16:40 | disposition home or self-care (01) ==
LOC: ED 12:20 → 2W 16:30 → INTOOBSV 16:30 → 2W 18:09